=== PATIENT | male | born 1940 | race Caucasian/White ===

== ENCOUNTER 2021-06-28 17:42 | Emergency (ER) | payer MEDICARE, SELFPAY ==
[2021-06-28 18:03] VITALS: BP 104/61; PULSE 95; RESP 18; TEMP 37; O2SAT 90; BMI 33.2
--- NOTE | 2021-06-28 18:28 | XRR_ITS ---
PROCEDURE INFORMATION: Exam: XR Chest Exam date and time: 06/28/2021 6:36 PM Age: 81 years old Clinical indication: Shortness of breath; Additional info: SOB TECHNIQUE: Imaging protocol: XR of the chest. Views: 1 view. COMPARISON: CR Chest 2 views* [id number] 04/08/2018 9:21 AM FINDINGS: Lungs: Unremarkable. No consolidation. Pleural spaces: Unremarkable. No pleural effusion. No pneumothorax. Heart/Mediastinum: Unremarkable. No cardiomegaly. Bones/joints: Unremarkable. XR/XR chest 1V portable [id number] IMPRESSION: No acute findings.
--- NOTE | 2021-06-28 18:28 | ECG_ITS ---
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 Measurements Intervals [place] Rate: 85 P: 59 GA: 256 QRS: -38 QRSD: 104 T: 124 QT: 380 QTc: 454 Interpretive Statements SINUS RHYTHM WITH FIRST DEGREE AV BLOCK LEFT AXIS DEVIATION [QRS AXIS < -30] ST DEVIATION AND MODERATE T-WAVE ABNORMALITY, CONSIDER LATERAL ISCHEMIA [-0.1+ mV T-WAVE IN I/aVL/V5/V6] Compared to ECG 01/25/2018 14:01:34 First degree AV block now present Left-axis deviation now present Possible ischemia now present Ventricular premature complex(es) no longer present T-wave abnormality still present Electronically Signed On 06-28-2021 20:46:11 CDT by Amandeep Bledsoe M.D. [id number]
[2021-06-28 19:30] VITALS: BP 130/82; PULSE 87; RESP 17; O2SAT 96
[2021-06-28] MEDS: FUROsemide 10 mg/mL SDV 10mL 60 MG IVP (19:41)
[2021-06-28 19:43] LABS: Basophils # 0.1 10^3/uL (0.0-0.1); Basophils % 0.6 %; Eosinophils # 0.2 10^3/uL (0.0-0.8); Eosinophils % 1.8 %; Hematocrit 42.7 % (42.0-52.0); Hemoglobin 13.4 g/dL (11.7-16.6); Lymphocytes # 1.1 10^3/uL (0.8-4.8); Lymphocytes % 13.3 %; Mean Corpuscular HGB Conc 31.4 g/dL (30.0-36.0); Mean Corpuscular Hemoglobin 25.8 pg (28.0-34.0); Mean Corpuscular Volume 82.3 fl (80-94); Mean Platelet Volume 11.7 fL (7.4-10.4); Monocytes # 0.8 10^3/uL (0.2-0.9); Monocytes % 9.5 %; Neutrophils # 6.36 10^3/uL (1.8-7.7); Neutrophils % 74.2 %; Nucleated Red Blood Cells % 0 %; Platelet Count 323 10^3/cmm (130-400); Red Blood Count 5.19 10^6/uL (4.1-5.3); Red Cell Distribution Width 13.5 % (12.1-15.1); White Blood Count 8.6 10^3/uL (4.0-10.0)
[2021-06-28 19:45] VITALS: BP 144/88; PULSE 88; RESP 19; O2SAT 95
--- NOTE | 2021-06-28 19:53 | W.ED.SOB ---
HPI - SOB/Dyspnea General: Chief Complaint: Shortness of Breath/Dyspnea Stated Complaint: low O2 Time Seen by Provider: 06/28/21 19:21 Source: patient Mode of arrival: ambulatory Limitations: no limitations History of Present Illness: HPI Narrative: 81-year-old male who states he has a history congestive heart failure states been having increasing dyspnea he states that he was on oxygen as needed and recently saw his PCP he was increase his Lasix dose and has him on 4 L at baseline. He states that even with 4 L he is continue to have dyspnea his daughter and flown in and states that he just been having extreme dyspnea with any exertion and increased swelling. He denies any pain denies any cough denies any fever. Associated symptoms: Deny abdominal pain, chest pain, fever(s), nausea or vomiting Review of Systems Const: Denies: fever(s), chills, body aches or change in appetite Eyes: Denies: blurry vision or eye discomfort ENMT: Denies: throat pain or dental pain Card: Denies: chest pain Resp: Reports: dyspnea GI: Denies: abdominal pain, nausea, vomiting or diarrhea : Denies: dysuria Musc: Reports: extremity swelling Skin/Breast: Denies: rash Neuro: Denies: headache(s) Psych: Denies: depression Trey/Lymph: Denies: easy bruising All/Imm: Denies: urticaria PFSH ED PFSH: Medical History Chronic systolic (congestive) heart failure Depression Encounter for nasogastric (NG) tube placement HTN (hypertension) Hypertensive heart disease with acute diastolic congestive heart failure Mixed hyperlipidemia 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 Stroke Type 2 diabetes mellitus Surgical History Hx of tonsillectomy Family History Mother Diabetes Father Diabetes Congestive heart failure Brother Diabetes Sister Diabetes Grandmother Diabetes Family/Other Diabetes Social History Smoking and tobacco status: former smoker Quit status (tobacco): has quit using tobacco Year quit tobacco: 1968 - 1PPD x 10 Years Second hand smoke exposure: No Alcohol intake: never Lives independently: Yes Household members: family Marital status: Current occupational status: retired History of recent travel: No Current gender identity: Male Physical Exam Const: COMMON NORMALS: patient oriented x3 GENERAL APPEARANCE: in distress and ill appearing HENMT: COMMON NORMALS: normocephalic and atraumatic HEAD & SCALP: normocephalic and atraumatic Eye: COMMON NORMALS: Equal, round and reactive pupils present and EOMs intact bilaterally PUPIL: Yes Equal, round and reactive pupils present Neck/C-Spine: COMMON NORMALS: full ROM and supple Chest: COMMONS NORMALS: normal inspection of the chest and normal palpation of entire chest wall Resp: COMMON NORMALS: No retractions and No use of accessory muscles AUSCULTATION: rales Cardio: COMMON NORMALS: regular rate, regular rhythm and No murmurs present (Cardio) RATE: regular rate RHYTHM: regular rhythm GI: COMMON NORMALS: Normal to inspection, nondistended, normoactive bowel sounds present, Soft to palpation, non-tender and no masses PALPATION: Yes Soft to palpation Extremity: COMMON NORMALS: full ROM OTHER: 2+edema Neuro: COMMON NORMALS: patient oriented x3, moves all extremities and no focal motor deficits Psych: COMMON NORMALS: mental status grossly normal, Normal thought process present and cooperative THOUGHT PROCESS: Normal thought process present Skin: COMMON NORMALS: no rashes or lesions noted and no wounds GENERAL SKIN EXAM: no rashes or lesions noted Course Vital Signs: Vital signs: Vital Signs Temperature 98.6 F 06/28/21 18:03 Pulse Rate 86 06/28/21 20:45 Respiratory Rate 12 06/28/21 20:45 Blood Pressure 143/93 06/28/21 20:45 Pulse Oximetry 94 06/28/21 20:45 MDM - SOB/Dyspnea Medical Decision Making Patient presents here with shortness of breath likely from his congestive heart failure he is feels much improved here after IV Lasix his x-ray is clear did have shared decision-making with him and his daughter and I offered him admission he states he feels improved and like to continue his increased Lasix at home as well he does have close follow-up as an echo scheduled for his daughter is going to be staying with him I informed her if he worsens at all they are to return immediately she understands agrees to plan. Lab Data : 06/28/21 19:30 05/03/22 19:30 Labs/Radiology: Radiology Impressions Chest X-Ray 06/28/21 18:28 IMPRESSION: No acute findings. Laboratory Results WBC 8.6 10^3/uL (4.0-10.0) 06/28/21 19: RBC 5.19 10^6/uL (4.1-5.3) 06/28/21 19: Hgb 13.4 g/dL (11.7-16.6) 06/28/21 19: Hct 42.7 % (42.0-52.0) 06/28/21: MCV 82.3 fl (80-94) 06/28/21: MCH 25.8 pg (28.0-34.0) L 06/28/21: MCHC 31.4 g/dL (30.0-36.0) 06/28/21: RDW 13.5 % (12.1-15.1) 06/28/21: Plt Count 323 10^3/cmm (130-400) 06/28/21 19: MPV 11.7 fL (7.4-10.4) H 06/28/21: Neut % (Auto) 74.2 % 06/28/21: Lymph % (Auto) 13.3 % 06/28/21 19: [place] % (Auto) 9.5 % 06/28/21: Eos % (Auto) 1.8 % 06/28/21: Baso % (Auto) 0.6 % 06/28/21: Neut # (Auto) 6.36 10^3/uL (1.8-7.7) 06/28/21: Lymph # (Auto) 1.1 10^3/uL (0.8-4.8) 06/28/21: [place] # (Auto) 0.8 10^3/uL (0.2-0.9) 06/28/21 19: Eos # (Auto) 0.2 10^3/uL (0.0-0.8) 06/28/21 19: Baso # (Auto) 0.1 10^3/uL (0.0-0.1) 06/28/21 19: Nucleated RBC % (auto) 0 % 06/28/21 19: Nucleated RBCs # 0.0 /100WBC 06/28/21 19: PT 14.20 SECONDS (12.1-14.9) 06/28/21 19:30 INR 1.07 (0.8-1.2) 06/28/21 19:30 Sodium 140 mmol/L (136-145) 06/28/21 19: Potassium 4.0 mmol/L (3.5-5.1) 06/28/21 19: Chloride 100 mmol/L (98-107) 06/28/21: Carbon Dioxide 26 mmol/L (22-29) 06/28/21: Anion Gap 18.0 (5-19) 06/28/21 19: BUN 29 mg/dL (8-23) H 06/28/21 19: Creatinine 1.4 mg/dL (0.7-1.2) H 06/28/21: GFR Calculation Not Reportable 06/28/21: Glucose 231 mg/dL (65-115) H 06/28/21: Calculated Osmolality 303 mOsm/kg (285-295) H 06/28/21: Calcium 9.3 mg/dL (8.5-10.5) 06/28/21: Total Bilirubin 0.3 mg/dL (0.15-1.2) 06/28/21 19: AST 9 U/L (0-40) 06/28/21: ALT 7 U/L (0-41) 06/28/21: Alkaline Phosphatase 129 IU/L (40-130) 06/28/21 19:30 NT-Pro-B Natriuret Pep 6222 pg/mL (0-450) H 06/28/21 19: Total Protein 6.9 g/dL (6.6-8.7) 06/28/21 19: Albumin 3.6 g/dL (3.5-5.2) 06/28/21 19: Globulin 3.3 g/dL (1.3-4.6) 06/28/21 19:30 EKG Data EKG 1: I personally reviewed and interpreted this EKG as follows: EKG Interpretation Date: 06/28/21 EKG interpretation time: 19:30 Interpretation: nsr hr [address] or t wave abnormalities qrs 104 qtc 423 Discharge Plan Discharge Patient Disposition: Home Clinical Impression: Acute exacerbation of CHF (congestive heart failure) Condition: Stable Prescriptions: No Action paroxetine HCl 10 mg tablet 10 mg PO DAILY 0RF pantoprazole [Protonix] 40 mg tablet,delayed release (DR/EC) 40 mg PO DAILY 0RF metformin 1,000 mg tablet 1,000 mg PO BID 0RF Levemir FlexTouch U-100 Insuln 100 unit/mL (3 mL) insulin pen 30 unit SUBCUT DAILY 0RF furosemide [Lasix] 40 mg tablet 40 mg PO DAILY 0RF clopidogrel [Plavix] 75 mg tablet 75 mg PO DAILY 0RF lisinopril 20 mg tablet 10 mg PO DAILY 0RF cetirizine [Zyrtec] 10 mg tablet 5 mg PO DAILY 0RF docusate sodium [Colace] 100 mg capsule 100 mg PO BID 0RF magnesium hydroxide 400 mg/5 mL suspension 30 ml PO DAILY PRN0RF semaglutide 0.25 mg or 0.5 mg(2 mg/1.5 mL) pen injector 0.5 mg SUBCUT .Weekly 0RF simvastatin 80 mg tablet 80 mg PO DAILY 0RF tramadol 50 mg tablet 50 mg PO DAILY 0RF albuterol sulfate 90 mcg/actuation HFA aerosol inhaler 2 puff inhalation Q6H PRN (Reason: shortness of breath or wheezing) 30 Days Qty: 18 4RF potassium chloride 10 mEq tablet extended release 10 meq PO DAILY Qty: 90 3RF Anoro Ellipta 62.5-25 mcg/actuation blister with device 1 inh inhalation DAILY Qty: 60 3RF Discharge Orders: Discharge ED (Routine); Ordered 06/28/21 Ordered By: Maru Walker Discharge Diet: Advance as tolerated Discharge Activity: Resume usual activity Patient Instructions: Heart Failure (ED) Coding Level of Care Code ED Application Programmer Analyst for Anthony Fwd Exam Comprehensive
[2021-06-28 20:10] LABS: INR 1.07 (0.8-1.2)
[2021-06-28 20:18] LABS: Alanine Aminotransferase 7 U/L (0-41); Albumin Level 3.6 g/dL (3.5-5.2); Alkaline Phosphatase 129 IU/L (40-130); Aspartate Amino Transferase 9 U/L (0-40); Blood Urea Nitrogen 29 mg/dL (8-23); Calcium 9.3 mg/dL (8.5-10.5); Carbon Dioxide 26 mmol/L (22-29); Chloride 100 mmol/L (98-107); Globulin 3.3 g/dL (1.3-4.6); Glucose 231 mg/dL (65-115); NT Pro B Type Natriuretic Pept 6222 pg/mL (0-450); Osmolality Calculated 303 mOsm/kg (285-295); Sodium 140 mmol/L (136-145); Total Bilirubin 0.3 mg/dL (0.15-1.2); Total Protein 6.9 g/dL (6.6-8.7)
[2021-06-28 20:45] VITALS: BP 143/93; PULSE 86; RESP 12; O2SAT 94
== END 2021-06-28 20:46 | disposition home or self-care (01) ==
PROVIDERS: Emergency Provider Emergency Medicine
DX: I11.0 Hypertensive heart disease with heart failure (principal); I50.23 Acute on chronic systolic (congestive) heart failure; E11.9 Type 2 diabetes mellitus without complications; Z87.891 Personal history of nicotine dependence; Z99.81 Dependence on supplemental oxygen; Z79.4 Long term (current) use of insulin; Z79.84 Long term (current) use of oral hypoglycemic drugs; Z79.02 Long term (current) use of antithrombotics/antiplatelets
CPT/HCPCS: 71045; 80053; 83880; 85025; 85610; 93005; 96374; 99284; J1940

== ENCOUNTER 2021-07-01 12:23 | Outpatient (CLI) | payer MEDICARE, SELFPAY ==
--- NOTE | 2021-07-01 12:33 | USCV_ITS ---
Vijay Barajas Age: 81 Gender: M : 1940 Exam Date: 07/01/2021 13:14 Ordering Phys: GHADA MERA Technologist: TANJA [place] [facility] [place]ication: Aortic stenosis, moderate BP: 139 / 87 HR: 86 Rhythm: Sinus Technical Quality: Suboptimal MEASUREMENTS (Male / Female) Normal Values 2D ECHO LV Diastolic Diameter PLAX 3.9 cm 4.2 - 5.9 / 3.9 - 5.3 cm LV Systolic Diameter PLAX 3.2 cm IVS Diastolic Thickness 1.5 cm 0.6 - 1.0 / 0.6 - 0.9 cm IVS Systolic Thickness 1.9 cm LVPW Diastolic Thickness 1.5 cm 0.6 - 1.0 / 0.6 - 0.9 cm LVPW Systolic Thickness 1.7 cm RV Chamber Size 3.2 cm LVOT Diameter 2.1 cm LV Ejection Fraction 2D Teich 38.0 % LA Diameter 2.7 cm LA Width 3.5 cm LA Height 4.3 cm RA Width 4.6 cm RA Height 4.5 cm Aorta at Sinotubular Diameter 2.9 cm M-MODE Aortic Annulus Diameter 3.4 cm LA Ao Ratio MM 0.7 MV E Point Septal Separation 1.1 cm DOPPLER AV Peak Velocity 369.0 cm/s LVOT Peak Velocity 86.0 cm/s AV Area Cont Eq vti 0.8 cm squared AV Area Cont Eq pk 0.8 cm squared MV Area PHT 7.9 cm squared MV E' Velocity 68.0 cm/s Mitral E to MV E' Ratio 12.3 Mitral E to LV E' Lateral Ratio 12.5 Mitral E to LV E' Septal Ratio 12.2 TR Peak Velocity 247.0 cm/s TR Peak Gradient 24.4 mmHg Right Atrial Pressure 3.0 mmHg Pulmonary Artery Systolic Pressu 27.4 mmHg PV Peak Velocity 71.0 cm/s RV Acceleration Time 0.1 s RV Ejection Time 0.2 s RV AcT/ET 0.2 FINDINGS Left Ventricle Diffuse hypokinesia of the left ventricle with ejection fraction of 38%. Somewhat dyskinetic basal septal segment. Right Ventricle Normal RV size with a slightly diminished ejection fraction. TAPSE was 1.02 Right Atrium The right atrium is normal in size. Left Atrium The left atrium is normal in size. Mitral Valve Thickened mitral valve with moderate mitral annular calcification. Aortic Valve Trace aortic valve regurgitation. Severe low gradient aortic valve stenosis with a valve area of 0.71 cm2 and a valve index of .32. The peak velocity was 3.9 m/s with a peak gradient of 61 and a mean gradient of 32 Tricuspid Valve Mild tricuspid annular calcification. Pulmonary artery peak systolic pressure was 27 mmHg Pulmonic Valve No gross abnormalities noted Pericardium No pericardial effusion. Aorta Normal aortic annulus size. CONCLUSIONS Severe low gradient aortic valve stenosis with a valve area of 0.71 cm2 and a valve index of .32. The peak velocity was 3.9 m/s with a peak gradient of 61 and a mean gradient of 32. Trace aortic valve regurgitation. Diffuse hypokinesia of the left ventricle with an ejection fraction of 38%. Somewhat dyskinetic basal septal segment. Normal RV size with a slightly diminished ejection fraction. Thickened mitral valve with moderate mitral annular calcification. Mild tricuspid annular calcification. Pulmonary artery peak systolic pressure was 27 mmHg There is no pericardial effusion. There are no intracardiac masses. Compared to the study from 12/19/2018, there is a significant drop in the LV ejection fraction. The there is worsening of the aortic valve stenosis as well. The ejection fraction was 60 to 65%. Dr Dominic Nava MD [facility] (Electronically Signed) Final Date: 01 Jul 2021 19:50 S
== END 2021-07-01 12:24 | disposition home or self-care (01) ==
LOC: RAD 12:25
PROVIDERS: Visit Provider Internal Medicine Cardiovascular Disease
DX: I35.0 Nonrheumatic aortic (valve) stenosis (principal); I50.22 Chronic systolic (congestive) heart failure
CPT/HCPCS: 93306

== ENCOUNTER 2021-12-05 14:03 | Inpatient (IN) | payer MEDICARE, MEDICAID, SELFPAY ==
[2021-12-05] VITALS (31 sets, daily range): BP systolic 108–187; BP diastolic 66–108; PULSE 69–113; RESP 16–42; TEMP 36.1–36.7; O2SAT 87–95; BMI 32.8
--- NOTE | 2021-12-05 14:35 | ECG_ITS ---
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 Measurements Intervals [place] Rate: 112 P: [place]: QRS: -13 QRSD: 110 T: 108 QT: 361 QTc: 493 Interpretive Statements Atrial flutter with a frequent PVCs SEPTAL MYOCARDIAL INFARCTION , PROBABLY OLD [40+ ms Q WAVE IN V1/V2] Compared to ECG 06/28/2021 19:30:48 Myocardial infarct finding now present Sinus rhythm no longer present First degree AV block no longer present Left-axis deviation no longer present T-wave abnormality no longer present Possible ischemia no longer present Electronically Signed On 12-05-2021 21:25:18 CDT by Dominic Nava M.D. [id number]
--- NOTE | 2021-12-05 14:35 | XRR_ITS ---
PROCEDURE INFORMATION: Exam: XR Chest Exam date and time: 12/05/2021 2:42 PM Age: 81 years old Clinical indication: Cough and dyspnea; Patient HX: Nausea, not eating, trouble walking, confused; Additional info: Dyspnea/cough TECHNIQUE: Imaging protocol: Radiologic exam of the chest. Views: 1 view. COMPARISON: CR XR chest 1V portable [id number] 06/28/2021 6:36 PM FINDINGS: Lungs: Unremarkable. No consolidation. Pleural spaces: Unremarkable. No pleural effusion. No pneumothorax. Heart/Mediastinum: Unremarkable. No cardiomegaly. Bones/joints: Unremarkable. Other findings: There has been no interval change comparing to prior XR/XR chest 1V portable [id number] IMPRESSION: No acute findings.
[2021-12-05 15:02] LABS: Basophils # 0.1 10^3/uL (0.0-0.1); Basophils % 0.6 %; Eosinophils # 0.2 10^3/uL (0.0-0.8); Hematocrit 39.8 % (42.0-52.0); Hemoglobin 12.2 g/dL (11.7-16.6); Lymphocytes # 0.8 10^3/uL (0.8-4.8); Lymphocytes % 10.2 %; Mean Corpuscular HGB Conc 30.7 g/dL (30.0-36.0); Mean Corpuscular Hemoglobin 25.9 pg (28.0-34.0); Mean Corpuscular Volume 84.5 fl (80-94); Mean Platelet Volume 11.6 fL (7.4-10.4); Monocytes # 0.8 10^3/uL (0.2-0.9); Monocytes % 9.9 %; Neutrophils # 6.31 10^3/uL (1.8-7.7); Neutrophils % 76.9 %; Nucleated Red Blood Cells % 0 %; Platelet Count 239 10^3/cmm (130-400); Red Blood Count 4.71 10^6/uL (4.1-5.3); Red Cell Distribution Width 13.9 % (12.1-15.1); White Blood Count 8.2 10^3/uL (4.0-10.0)
--- NOTE | 2021-12-05 15:02 | ED_ITS ---
HPI - Arrhythmia/Palpitations General: Chief Complaint: Arrhythmia/Palpitations Stated Complaint: heart rate at 35 Time Seen by Provider: 12/05/21 14:35 Source: patient Mode of arrival: ambulatory History of Present Illness: 81-year-old male presents emergency room complaining of a slow heart rate. He says his heart rate has been as low as 35 at home has been difficult keeping his oxygen saturations up no recent medication changes. Patient is diabetic he denies any chest pain. MD complaint: palpitations and irregular heart beat Onset (ago): day(s) Duration: intermittent Severity: moderate Context: occurred during rest Associated symptoms: Reports short of breath; Deny anxiety, cough, diaphoresis, muscle cramps, nausea, paresthesias, pre- syncope, sense of impending doom, syncope or vomiting Review of Systems Const: Reports: fatigue and malaise; Denies: fever(s), chills or diaphoresis ENMT: Denies: throat pain, ear or mastoid pain, nasal discharge or nasal congestion Card: Reports: palpitations, irregular heart rhythm, edema and swelling of feet/ankles; Denies: chest pain, syncope or pre-syncope Resp: Denies: dyspnea, productive cough or non-productive cough GI: Denies: abdominal pain, nausea or vomiting : Denies: flank pain, difficulty urinating, dysuria, urinary frequency or urinary urgency Musc: Denies: muscle cramps Skin/Breast: Denies: rash or pruritus Psych: Denies: anxiety PFSH ED PFSH: Medical History Chronic systolic (congestive) heart failure Depression Encounter for nasogastric (NG) tube placement HTN (hypertension) Hypertensive heart disease with acute diastolic congestive heart failure Mixed hyperlipidemia 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 Stroke Type 2 diabetes mellitus Surgical History Hx of tonsillectomy Family History Mother Diabetes Father Diabetes Congestive heart failure Brother Diabetes Sister Diabetes Grandmother Diabetes Family/Other Diabetes Social History Smoking and tobacco status: former smoker Quit status (tobacco): has quit using tobacco Year quit tobacco: 1969 - 1PPD x 10 Years Second hand smoke exposure: No Alcohol intake: never Lives independently: Yes Household members: family Marital status: Current occupational status: retired History of recent travel: No Current gender identity: Male Physical Exam Const: COMMON NORMALS: no acute distress GENERAL APPEARANCE: cooperative and comfortable ORIENTATION/CONSCIOUSNESS: Yes awake, Yes oriented to person, Yes oriented to place and Yes oriented to time HENMT: COMMON NORMALS: normocephalic, atraumatic and hearing grossly normal bilaterally HEAD & SCALP: normocephalic and atraumatic Resp: COMMON NORMALS: normal respiratory effort, No retractions, No use of accessory muscles and clear to auscultation bilaterally AUSCULTATION: clear to auscultation bilaterally Cardio: RATE: tachycardic RHYTHM: abnormal rhythm irregularly irregular HEART SOUNDS: Murmur heart sound present systolic Location: left sternal border Intensity: IV/ Timing: late GI: COMMON NORMALS: Soft to palpation and No hepatosplenomegaly present AUS CULTATION: Yes normoactive bowel sounds PALPATION: Yes Soft to palpation, No Tenderness to palpation present (GI), No Guarding due to palpation present (GI) and Yes No hepatosplenomegaly present Extremity: COMMON NORMALS: normal to inspection, capillary refill normal, no clubbing, cyanosis or edema, no calf tenderness and no pedal edema Neuro: SENSORIUM/ORIENTATION: Yes oriented to person, Yes oriented to place and Yes oriented to time Skin: COMMON NORMALS: no rashes or lesions noted GENERAL SKIN EXAM: no rashes or lesions noted Course Vital Signs: Vital signs: Vital Signs Temperature 98.0 F 12/05/21 14:05 Pulse Rate 69 12/05/21 14:05 Respiratory Rate 18 12/05/21 14:05 Blood Pressure 173/66 12/05/21 14:05 Pulse Oximetry 90 12/05/21 14:05 Oxygen Delivery Me thod 12/05/21 14:05 Fraction of Inspir ed Oxygen 4 12/05/21 14:05 MDM - Arrhythmia/Palpitations Medical Decision Making Patient and family reporting intermittent tach. Arrhythmias with heart rates up in the 130s and 140s and other times down in the 30s they have been monitoring u sing a finger pulse ox. We have only seen Blaze call here since he has arrived rates have been in the 70s and above. His first troponin is 85 we will admit him for serial troponins monitoring for tacky arrhythmias discussed with Dr. Guillen he is going to consult cardiology if needed. Medical Records I reviewed the patient's medical records. Lab Data I reviewed the patient's lab results. : 12/05/21 14:50 12/05/21 14:50 Radiology Impressions Chest X-Ray 12/05/21 14:35 IMPRESSION: No acute findings. Laboratory Results WBC 8.2 10^3/uL (4.0-10.0) 12/05/21 14:50 RBC 4.71 10^6/uL (4.1-5.3) 12/05/21 14:50 Hgb 12.2 g/dL (11.7-16.6) 12/05/21 14:50 Hct 39.8 % (42.0-52.0) L 12/05/21 14:50 MCV 84.5 fl (80-94) 12/05/21 14:50 MCH 25.9 pg (28.0-34.0) L 12/05/21 14:50 MCHC 30.7 g/dL (30.0-36.0) 12/05/21 14:50 RDW 13.9 % (12.1-15.1) 12/05/21 14:50 Plt Count 239 10^3/cmm (130-400) 12/05/21 14:50 MPV 11.6 fL (7.4-10.4) H 12/05/21 14:50 Neut % (Auto) 76.9 % 12/05/21 14:50 Lymph % (Auto) 10.2 % 12/05/21 14:50 [place] % (Auto) 9.9 % 12/05/21 14:50 Eos % (Auto) 2.0 % 12/05/21 14:50 Baso % (Auto) 0.6 % 12/05/21 14:50 Neut # (Auto) 6.31 10^3/uL (1.8-7.7) 12/05/21 14:50 Lymph # (Auto) 0.8 10^3/uL (0.8-4.8) 12/05/21 14:50 [place] # (Auto) 0.8 10^3/uL (0.2-0.9) 12/05/21 14:50 Eos # (Auto) 0.2 10^3/uL (0.0-0.8) 12/05/21 14:50 Baso # (Auto) 0.1 10^3/uL (0.0-0.1) 12/05/21 14:50 Nucleated RBC % (auto) 0 % 12/05/21 14:50 Nucleated RBCs # 0.0 /100WBC 12/05/21 14:50 Sodium 136 mmol/L (136-145) 12/05/21 14:50 Potassium 4.1 mmol/L (3.5-5.1) 12/05/21 14:50 Chloride 98 mmol/L (98-107) 12/05/21 14:50 Carbon Dioxide 26 mmol/L (22-29) 12/05/21 14:50 Anion Gap 16.1 (5-19) 12/05/21 14:50 BUN 34 mg/dL (8-23) H 12/05/21 14:50 Creatinine 1.5 mg/dL (0.7-1.2) H 12/05/21 14:50 GFR Calculation Not Reportable 12/05/21 14:50 Glucose 195 mg/dL (65-115) H 12/05/21 14:50 Calculated Osmolality 295 mOsm/kg (285-295) 12/05/21 14:50 Calcium 9.0 mg/dL (8.5-10.5) 12/05/21 14:50 Total Bilirubin 0.5 mg/dL (0.15-1.2) 12/05/21 14:50 AST 13 U/L (0-40) 12/05/21 14:50 ALT 12 U/L (0-41) 12/05/21 14:50 Alkaline Phosphatase 119 U/L (40-130) 12/05/21 14:50 Troponin T Baseline 87 ng/L (0-15) H 12/05/21 14:50 Total Protein 6.5 g/dL (6.6-8.7) L 12/05/21 14:50 Albumin 3.7 g/dL (3.5-5.2) 12/05/21 14:50 Globulin 2.8 g/dL (1.3-4.6) 12/05/21 14:50 Discharge Plan Discharge Patient Disposition: Placed in Observation Admit Provider: Corinne Guillen Condition: Stable Prescriptions: No Action pantoprazole [Protonix] 40 mg tablet,delayed release (DR/EC) 40 mg PO QAM metformin 1,000 mg tablet 1,000 mg PO BID Levemir FlexTouch U-100 Insuln 100 unit/mL (3 mL) insulin pen 40 unit SUBCUT QAM furosemide [Lasix] 40 mg tablet 20 mg PO QAM clopidogrel [Plavix] 75 mg tablet 75 mg PO QAM docusate sodium [Colace] 100 mg capsule 100 mg PO QAM tramadol 50 mg tablet 50 - 100 mg PO Q8H PRN (Reason: Pain) albuterol sulfate 90 mcg/actuation HFA aerosol inhaler 2 puff inhalation Q6H PRN (Reason: shortness of breath or wheezing) 30 Days Qty: 18 4RF Aspir-81 81 mg Tablet,Delayed Release (Dr/Ec) 81 mg PO QAM lisinopril 5 mg tablet 5 mg PO QAM potassium gluconate 550 mg (90 mg) Tablet 550 mg PO QAM Trulicity 1.5 mg/0.5 mL pen injector 1.5 mg SUBCUT Q7D Rx Instructions: on sunday potassium chloride 10 mEq tablet extended release 10 meq PO QAM Anoro Ellipta 62.5-25 mcg/actuation blister with device 1 inh inhalation DAILY PRN (Reason: unknown) Coding Level of Care Code ED Leather Stripping Machine Operator for Anthony Pettit
[2021-12-05 15:24] LABS: Alanine Aminotransferase 12 U/L (0-41); Albumin Level 3.7 g/dL (3.5-5.2); Alkaline Phosphatase 119 U/L (40-130); Anion Gap 16.1 (5-19); Aspartate Amino Transferase 13 U/L (0-40); Blood Urea Nitrogen 34 mg/dL (8-23); Carbon Dioxide 26 mmol/L (22-29); Chloride 98 mmol/L (98-107); Globulin 2.8 g/dL (1.3-4.6); Glucose 195 mg/dL (65-115); Osmolality Calculated 295 mOsm/kg (285-295); Potassium 4.1 mmol/L (3.5-5.1); Sodium 136 mmol/L (136-145); Total Bilirubin 0.5 mg/dL (0.15-1.2); Total Protein 6.5 g/dL (6.6-8.7)
[2021-12-05 15:29] LABS: Troponin(5th) Baseline 87 ng/L (0-15)
--- NOTE | 2021-12-05 15:35 | PC.PHAR ---
pt and pts daughter verified pts medications and brought in some of the pts medication bottles-rx filled and picked up 11/01/21 for trulicity 1.5mg q 7d-pts daughter states she thought he was on ozempic [facility] states dced in august 2021 states pt takes trulicity-rx filled for levemir flextouch u-100 30-40 units daily pts daughter states the pt uses 40 units qam-rx bottle dated 08/02/2020 for metformin 1000mg bid [facility] last filled 01/24/21 pt states was just taking one tab daily then states just started taking bid again-notes are made in the pharmacy comments
--- NOTE | 2021-12-05 16:32 | PM.HP ---
Providers/Chief Complaint Chief Complaint: heart rate at 35 and SOB History of Present Illness Vijay Barajas is a 81 year old male who presented to the hospital for 4 days in mild shortness of breath generalized weakness and fatigue. Today patient was checking his pulse when he was weak and lethargic at home he noticed his heart rate was in low 30s that prompted his visit to the ER. In the ER when I evaluated him he was in A. fib RVR heart rate 110. Hemodynamically stable Awake and alert No chest pain, nausea, vomiting, recent fever, diarrhea or vomiting. Is endorsing weakness and lethargy. He stating that he had valve replacement 1 week ago at [facility], he is on aspirin and Plavix No previous diagnosis of A. fib Review of Systems Const: Denies: fever(s) Eyes: Denies: change in vision ENMT: Denies: throat pain Card: Reports: dyspnea on exertion; Denies: chest pain Resp: Reports: dyspnea GI: Denies: abdominal pain : Denies: flank pain Musc: Denies: neck pain Skin/Breast: Denies: rash Neuro: Denies: headache(s) Psych: Denies: anxiety Endo: Denies: polyuria Trey/Lymph: Denies: easy bruising All/Imm: Denies: urticaria Medications/Allergies Home Medications Medication Instructions Recorded Confirmed Last Taken Type albuterol sulfate 90 mcg/actuation 2 puff inhalation Q6H PRN 02/05/20 12/05/21 Unknown Rx aerosol inhaler shortness of breath or wheezing 30 days #18 grams clopidogrel 75 mg tablet (Plavix) 75 mg PO QAM 02/05/20 12/05/21 12/05/21 History docusate sodium 100 mg capsule 100 mg PO QAM 02/05/20 12/05/21 12/05/21 History (Colace) furosemide 40 mg tablet (Lasix) 20 mg PO QAM 02/05/20 12/05/21 12/05/21 History insulin detemir U-100 100 unit/mL 40 unit SUBCUT QAM 02/05/20 12/05/21 12/05/21 History (3 mL) subcutaneous pen (Levemir FlexTouch U-100 Insulin) metformin 1,000 mg tablet 1,000 mg PO BID 02/05/20 12/05/21 12/05/21 History pantoprazole 40 mg tablet,delayed 40 mg PO QAM 02/05/20 12/05/21 12/05/21 History release (Protonix) tramadol 50 mg tablet 50 - 100 mg PO Q8H PRN Pain 02/05/20 12/05/21 Unknown History aspirin 81 mg tablet,delayed 81 mg PO QAM 12/05/21 12/05/21 12/05/21 History release dulaglutide 1.5 mg/0.5 mL 1.5 mg SUBCUT Q7D 12/05/21 12/05/21 11/29/21 History subcutaneous pen injector (Trulicity) lisinopril 5 mg tablet 5 mg PO QAM 12/05/21 12/05/21 12/05/21 History potassium chloride 10 mEq 10 meq PO QAM 12/05/21 12/05/21 12/05/21 History tablet,extended release potassium gluconate 550 mg (90 mg) 550 mg PO QAM 12/05/21 12/05/21 12/05/21 History tablet umeclidinium 62.5 mcg-vilanterol 1 inh inhalation DAILY PRN unknown 12/05/21 12/05/21 Unknown History 25 mcg/actuation powdr for inhalation (Anoro Ellipta) Allergies Allergy/AdvReac Type Severity Reaction Status Date / Time Sulfa (Sulfonamide AdvReac ADR/ALGY-Pa Verified 12/05/21 15:19 Antibiotics) lpitations PFSH Acute PFSH: Medical History Chronic systolic (congestive) heart failure Depression Encounter for nasogastric (NG) tube placement HTN (hypertension) Hypertensive heart disease with acute diastolic congestive heart failure Mixed hyperlipidemia 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 Stroke Type 2 diabetes mellitus Surgical History Hx of tonsillectomy Family History Mother Diabetes Father Diabetes Congestive heart failure Brother Diabetes Sister Diabetes Grandmother Diabetes Family/Other Diabetes Social History Smoking and tobacco status: former smoker Quit status (tobacco): has quit using tobacco Year quit tobacco: 1969 - 1PPD x 10 Years Second hand smoke exposure: No Alcohol intake: never Lives independently: Yes Household members: family Marital status: Current occupational status: retired History of recent travel: No Current gender identity: Male Vitals/I&O/Wt Last Vital Signs Temp 98.0 F 12/05/21 14:05 Pulse 69 12/05/21 14:05 Resp 18 12/05/21 14:05 BP 173/66 12/05/21 14:05 Pulse Ox 90 12/05/21 14:05 O2 Del Method 12/05/21 14:05 FiO2 4 12/05/21 14:05 Weight last 48 hrs Weight 106.594 kg Physical Exam Narrative: Awake and alert Clinically looks fluid overloaded A. fib RVR Variable S1-S2 Lungs are clear to auscultation Currently on 4 L which is at baseline Abdomen soft Lower extremity edema present EOMI, PERRLA Nonfocal neuro exam Data : 12/05/21 14:50 12/05/21 14:50 A&P Assessment and plan (1) Nocturnal hypoxia: (2) Severe aortic valve stenosis: (3) Emphysema of lung: (4) New onset a-fib: (5) CHF exacerbation: Plan New onset A. fib Patient noticed heart rate in 30s at home, concern for sick sinus syndrome question Currently in RVR I will give him low-dose metoprolol twice daily regimen Start him on therapeutic anticoagulating agent [place] 4-5 Aortic valve stenosis status post recent TAVR No active chest pain Will get echo check TSH check magnesium level Check A1c level Patient has history of COPD not in acute exacerbation currently on 4 L which is at baseline Systolic congestive heart failure acute exacerbation likely rate related, continue Lasix Full code Cardiac diet Attestations Medical Necessity Statement*: Less than 2 midnights anticipated for management of A. fib RVR Time Spent in Patient Care: 50 Coding Level of Care Code Acute County Program Technician for Chg Fwd Diagnoses Nocturnal hypoxia G47.34 Severe aortic valve stenosis I35.0 Emphysema of lung J43.9 New onset a-fib I48.91 CHF exacerbation I50.9
--- NOTE | 2021-12-05 16:52 | ECG_ITS ---
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 Measurements Intervals [place] Rate: 107 P: IN: QRS: 18 QRSD: 110 T: 97 QT: 394 QTc: 526 Interpretive Statements ATRIAL FLUTTER/TACHYCARDIA WITH RAPID VENTRICULAR RESPONSE WITH ABERRANT CONDUCTION OR VENTRICULAR PREMATURE COMPLEXES SEPTAL MYOCARDIAL INFARCTION , PROBABLY OLD [40+ ms Q WAVE IN V1/V2] Compared to ECG 12/05/2021 14:48:52 Ventricular premature complex(es) now present Aberrant conduction of supraventricular beat(s) now present Supraventricular tachycardia no longer present Myocardial infarct finding still present Electronically Signed On 12-05-2021 21:35:12 CDT by Dominic Nava M.D. [id number]
[2021-12-05 17:21] LABS: Troponin 5 2HR 89.89 ng/L (0-15)
[2021-12-05 17:24] LABS: Troponin 5 2HR Delta 2.89 ABS# (0-10)
--- NOTE | 2021-12-05 17:42 | USCV_ITS ---
Vijay Barajas Age: 81 Gender: M : 1940 Exam Date: 12/05/2021 18:25 Ordering Phys: Corinne Guillen MD Technologist: AYE Exam Location: [facility] [place] Indication: bradycardia History of cardiac stenting two weeks ago per patient. Upon questioning, patient has had a TAVR, time uncertain. BP: 131 / 73 HR: 96 Rhythm: Atrial fibrillation Technical Quality: Adequate MEASUREMENTS (Male / Female) Normal Values 2D ECHO LV Diastolic Diameter PLAX 5.3 cm 4.2 - 5.9 / 3.9 - 5.3 cm LV Systolic Diameter PLAX 5.0 cm IVS Diastolic Thickness 1.6 cm 0.6 - 1.0 / 0.6 - 0.9 cm IVS Systolic Thickness 1.8 cm LVPW Diastolic Thickness 1.4 cm 0.6 - 1.0 / 0.6 - 0.9 cm LVPW Systolic Thickness 1.5 cm LVOT Diameter 2.1 cm LV Ejection Fraction 2D Teich 15.3 % LV Ejection Fraction MOD 2C 16.3 % LV Ejection Fraction 2C AL 17.4 % LA Diameter 5.1 cm LA Width 5.0 cm LA Height 7.4 cm RA Width 6.3 cm RA Height 6.9 cm Aorta at Sinotubular Diameter 2.9 cm IVC Diameter 3.1 cm M-MODE Aortic Annulus Diameter 2.7 cm LA Ao Ratio MM 2.0 MV E Point Septal Separation 1.1 cm DOPPLER AV Peak Velocity 228.0 cm/s LVOT Peak Velocity 72.0 cm/s AV Area Cont Eq vti 0.9 cm squared AV Area Cont Eq pk 1.1 cm squared MV Peak Velocity 114.0 cm/s MV Area PHT 6.7 cm squared MV E' Velocity 75.0 cm/s Mitral E to MV E' Ratio 22.0 Mitral E to LV E' Lateral Ratio 21.0 Mitral E to LV E' Septal Ratio 23.5 TR Peak Velocity 304.0 cm/s TR Peak Gradient 37.0 mmHg TV Peak E Velocity 76.0 cm/s Right Atrial Pressure 10.0 mmHg Pulmonary Artery Systolic Pressu 47.0 mmHg PV Peak Velocity 97.0 cm/s RV Acceleration Time 0.1 s RV Ejection Time 0.3 s RV AcT/ET 0.3 FINDINGS Left Ventricle Left ventricle is mildly dilated. LV systolic function is severely reduced with EF of 15 to 20%. Severe global hypokinesis Right Ventricle RV is dilated and is hypokinetic Right Atrium Dilated Left Atrium Dilated Mitral Valve Normal mitral valve. Mild to moderate mitral regurgitation. Aortic Valve Bioprosthetic aortic valve.Mild to moderate aortic regurgitation. DVI is 0.26. Normally functioning aortic valve. Mean gradient across aortic valve of 10mmHg Tricuspid Valve Mild to moderate tricuspid regurgitation. RVSP is 50-55 mmHg. This is consistent with moderate pulmonary hypertension Pulmonic Valve Mild pulmonic regurgitation Pericardium Normal Aorta Mildly dilated ascending aorta IVC IVC is dilated with RA pressure >10mmHg CONCLUSIONS LV systolic function is severely reduced with EF of 15-20%. Severe global hypokinesis. RV is dilated and hypokinetic Biatrial englargement Mild mitral to moderate mitral regurgitation Bioprosthetic aortic valve. Mild to moderate aortic regurgitation. DVI is 026. Normally functioning aortic valve. Mean gradient across aortic valve of 10mmHg. Mild to moderate tricuspid regurgitation. Moderate pulmonary hypertension Mild pulmonic regurgitation Mildly dilated ascending aorta Elevated RA pressure Compared to prior echocardiogram from 06/2021, patient now has bioprosthetic aortic valve and LV systolic function has decreased further. Amandeep Bledsoe MD (Electronically Signed) Final Date: 06 December 2021 10:23 S
[2021-12-05 17:46] LABS: NT Pro B Type Natriuretic Pept 3914 pg/mL (0-450)
--- NOTE | 2021-12-05 18:00 | PC.NURSE ---
Admit Note Patient admitted to room 276-2 from ER via stretcher. Covering service notified Dr. Guillen. Patient is up and walking to room from bathroom. pt noted to be SOB. Pt stated he has been Sob for few days now. noted Afib w/rvr HR- 100s to 110s in tele when he is hooked up to cardiac monitoring. Pt noted to have swelling on legs and feet. Notified Dr Guillen via voalte phone. received orders to give IVP lasix 40 mg and metoprolol to give early. Patient and/or business center representative oriented to environment, equipment, and informed of the following as found in the admission booklet: patient rights & responsibilities, visitor policy, hand and respiratory hygiene practice. Other education includes: IVP lasix, metoprolol, lovenox and cardiac monitoring . Patient and/or business center representative verbalizes understanding. call light provided.
[2021-12-05] MEDS: magnesium oxide 400 mg tablet PO (18:20)
[2021-12-05 18:28] LABS: Glucose Point of Care 169 mg/dL (70-110)
[2021-12-05 18:38] LABS: Thyroid Stimulating Hormone 3.01 uIU/mL (0.27-4.20); Vitamin B12 343 pg/mL (232-1245)
[2021-12-05] MEDS: enoxaparin 100 mg/mL Syringe SUBCUT (19:18)
[2021-12-05] MEDS: insulin lispro 100 unit/1 mL SUBCUT (19:18)
[2021-12-05] MEDS: FUROsemide 10 mg/mL SDV 4mL 40 MG IVP (19:29)
[2021-12-05] MEDS: metoprolol tartrate 25 mg Tablet PO (19:29)
[2021-12-05 19:36] LABS: Estmated Average Glucose 209; Hemoglobin A1C 8.9 % (4.0-6.0)
[2021-12-05 21:22] LABS: Troponin 5 6HR 91.37 ng/L (0-15)
[2021-12-05 21:23] LABS: Troponin 5 6HR Delta 4.37 ng/L (0-12)
[2021-12-05 21:51] LABS: Glucose Point of Care 180 mg/dL (70-110)
--- NOTE | 2021-12-05 22:08 | ECG_ITS ---
[facility] Test Date: 2021-12-05 Pat Name: Vijay Barajas Department: Room: 276 Gender: Male Letterset Press Set Up Operator: : 1940 Requested By: Demond Miranda Order Number: [id number] Balbir MD: Amandeep Bledsoe M.D. Measurements Intervals [place] Rate: 88 P: OR: QRS: 8 QRSD: 101 T: 102 QT: 369 QTc: 447 Interpretive Statements ATRIAL FLUTTER/TACHYCARDIA Compared to ECG 12/05/2021 16:52:56 ST (T wave) deviation now present Ventricular premature complex(es) no longer present Myocardial infarct finding still present Electronically Signed On 12-07-2021 8:18:25 CDT by Amandeep Bledsoe M.D. [email or web address] [id number]
--- NOTE | 2021-12-05 22:13 | ECG_ITS ---
[facility] Test Date: 2021-12-05 Pat Name: Vijay Barajas Department: Room: 276 Gender: Male Behavioral Health Consultant: : 1940 Requested By: Shaw Soto Order Number: [id number] Balbir MD: Amandeep Bledsoe M.D. Measurements Intervals [place] Rate: 66 P: IN: QRS: 1 QRSD: 100 T: 99 QT: 418 QTc: 439 Interpretive Statements ATRIAL FLUTTER/TACHYCARDIA ST DEVIATION AND MODERATE T-WAVE ABNORMALITY, CONSIDER LATERAL ISCHEMIA [-0.1+ mV T-WAVE IN I/aVL/V5/V6] ST DEVIATION AND MODERATE T-WAVE ABNORMALITY, CONSIDER INFERIOR ISCHEMIA [-0.1+ mV T-WAVE IN II/aVF] Compared to ECG 12/05/2021 22:08:34 T-wave abnormality now present Possible ischemia now present ST (T wave) deviation no longer present Myocardial infarct finding no longer present Electronically Signed On 12-07-2021 8:18:37 CDT by Amandeep Bledsoe M.D. [id number]
[2021-12-05 23:10] LABS: Add Urine Microscopic? NO; Charge for UA Resulting for Rev
[2021-12-05 23:29] LABS: Bilirubin Urine Neg (Negative); Blood Urine Neg (Negative); Glucose Urine UA Norm (Normal); Ketones Urine Negative (Negative); Leukocyte Esterase Urine Negative (Negative); Nitrate Urine Negative (Negative); Protein Urine Neg (Negative); Specific Gravity, Urine 1.015 (1.005-1.030); Urine Appearance Clear (CLEAR); Urine Color Yellow (Yellow); Urobilinogen Urine Norm (Negative); pH Urine 5 (5-7)
--- NOTE | 2021-12-05 23:46 | PC.NURSE ---
Spoke with regarding patients most recent EKG. A picture was sent to and was reviewed. gave no new orders but called and spoke with nurse, patients vitals are stable and nocomplaints of chest pain.
[2021-12-06] VITALS (15 sets, daily range): BP systolic 84–150; BP diastolic 52–91; PULSE 68–102; RESP 16–24; TEMP 36.2–36.8; O2SAT 92–96
[2021-12-06 02:59] LABS: Basophils # 0.1 10^3/uL (0.0-0.1); Basophils % 0.7 %; Eosinophils # 0.1 10^3/uL (0.0-0.8); Eosinophils % 1.2 %; Hematocrit 42.2 % (42.0-52.0); Hemoglobin 12.2 g/dL (11.7-16.6); Lymphocytes # 0.7 10^3/uL (0.8-4.8); Lymphocytes % 7.9 %; Mean Corpuscular HGB Conc 28.9 g/dL (30.0-36.0); Mean Corpuscular Hemoglobin 25.4 pg (28.0-34.0); Mean Corpuscular Volume 87.9 fl (80-94); Monocytes # 0.8 10^3/uL (0.2-0.9); Monocytes % 10.1 %; Neutrophils # 6.54 10^3/uL (1.8-7.7); Neutrophils % 79.6 %; Nucleated Red Blood Cells % 0 %; Platelet Count 248 10^3/cmm (130-400); Red Cell Distribution Width 14.1 % (12.1-15.1); White Blood Count 8.2 10^3/uL (4.0-10.0)
[2021-12-06 03:30] LABS: Anion Gap 18.2 (5-19); Blood Urea Nitrogen 35 mg/dL (8-23); Carbon Dioxide 28 mmol/L (22-29); Chloride 97 mmol/L (98-107); Glucose 162 mg/dL (65-115); Magnesium 1.8 mg/dL (1.7-2.3); Osmolality Calculated 300 mOsm/kg (285-295); Potassium 4.2 mmol/L (3.5-5.1); Sodium 139 mmol/L (136-145)
[2021-12-06] MEDS: aspirin 81 mg EC Tablet PO (05:54)
[2021-12-06] MEDS: lisinopril 5 mg Tablet PO (05:54)
[2021-12-06] MEDS: pantoprazole DR 40 mg Tablet PO (05:54)
[2021-12-06] MEDS: enoxaparin 100 mg/mL Syringe SUBCUT ×2 (05:55→18:18)
[2021-12-06] MEDS: potassium chloride ER 10 mEq Tablet PO (05:55)
[2021-12-06] MEDS: docusate sodium 100 mg Capsule PO (05:55)
[2021-12-06 06:51] LABS: Glucose Point of Care 185 mg/dL (70-110)
[2021-12-06] MEDS: ipratropium-albuterol 3 mL Neb INHALATION ×4 (08:21→20:01)
[2021-12-06] MEDS: insulin lispro 100 unit/1 mL SUBCUT ×2 (08:52→18:22)
[2021-12-06] MEDS: FUROsemide 10 mg/mL SDV 4mL 40 MG IVP (08:53)
[2021-12-06] MEDS: magnesium oxide 400 mg tablet PO ×2 (08:54→18:23)
[2021-12-06] MEDS: sennosides-docusate Tablet 1 TAB PO (08:54)
[2021-12-06] MEDS: metoprolol tartrate 25 mg Tablet PO ×2 (08:58→10:57)
--- NOTE | 2021-12-06 10:19 | PM.PN ---
Subjective Subjective: A. fib RVR has improved Currently on metoprolol Patient is endorsing feeling better Currently on 4 L Creatinine 1.8 1 L urine output Vitals/I&O/Wt Last Vital Signs Temp 98.2 F 12/06/21 08:11 Pulse 94 12/06/21 08:24 Resp 16 12/06/21 08:24 BP 150/91 12/06/21 08:11 Pulse Ox 95 12/06/21 08:24 O2 Del Method 12/06/21 08:24 O2 Flow Rate 4 12/06/21 08:24 FiO2 4 12/05/21 14:05 12/05/21 12/06/21 12/06/21 22:59 06:59 14:59 Intake Total 600 / 600 120 / 720 Output Total 200 / 200 600 / 800 200 / 200 Balance 400 / 400 -480 / -80 -200 / -200 Weight last 48 hrs Weight 106.594 kg Weight 106.594 kg Physical Exam Narrative: Awake and alert Signs of CHF Extremity edema positive Bilateral breast without active crackles Currently on 4 L Awake and alert Nonfocal neuro exam Data : 12/06/21 02:37 12/06/21 02:37 A&P Assessment and plan (1) CHF exacerbation: (2) New onset a-fib: (3) Nocturnal hypoxia: (4) Severe aortic valve stenosis: (5) Emphysema of lung: Plan Acute systolic congestive heart failure exacerbation Previous EF 38% Recent TAVR A. fib RVR heart rate improved with metoprolol continue therapeutic Lovenox Patient is full code Currently on cardiac diet Repeat echo Modified metoprolol dose Continue Lasix, will increase the dose Acute on chronic kidney disease cardiorenal Full code Cardiac diet Currently on therapeutic Lovenox might need to change it to once daily instead of twice a day because of worsening of creatinine Attestations Medical Necessity Statement*: Continue hospitalization Time Spent in Patient Care: 40 Coding Level of Care Code Acute Senior Tax Specialist for Chg Fwd Diagnoses CHF exacerbation I50.9 New onset a-fib I48.91 Nocturnal hypoxia G47.34 Severe aortic valve stenosis I35.0 Emphysema of lung J43.9
[2021-12-06 10:51] LABS: Glucose Point of Care 134 mg/dL (70-110)
--- NOTE | 2021-12-06 11:06 | PC.CHAP ---
Pastoral Care Encounter/Spiritual Assessment Type of Contact [] Declined video operator visit [] Patient/Family/Request visit [] Outpatient visit [] Follow-up visit [] Physician referral [] Code/Alert [x] Routine visit [] Staff referral [] Actively dying [] Patient sleeping [] Family support [] [] Out of room [] Palliative care [] [] Receiving care in room [] Pre-surgical visit [] Trauma [] Long length of stay [] ICU visit [] Other: Relational/Emotional Strength [x] Patient feels connected with others/family/visitors/staff [] Distress [] Loneliness/isolation [] Abandonment Spirituality of Patient [x] Person of Suzie [x] Attends Mormonism of their Suzie [x] Believes in Prayer [x] Reads Bible or Methodist materials [x] There are Spiritual issues to be addressed Shirt Trimmer Interventions [x] Prayer [x] Active listening [] Non-anxious presence [x] Spiritual/emotional support [] Crisis/trauma care [] Spiritual counseling [] Bereavement support [] Provided bereavement packet [x] Provided Bible/devotional materials [] Provided toy/stuffed animal, coloring book to patient or family member [] Provided Communion [] Anointing/[place] [] Salvation [x] Completed spiritual assessment [] Other: Impact on Illness or Injury [] Angry [] Fearful [] Anxious [] Often cries [] Exhaustion [] Unable to work [] Unable to attend latter day [] Unable to walk/stand [] Unable to read [] Unable to drive [] Unable to eat/drink [] Unable to sleep [] Unable to be with family [] Patient intubated [] Other: Summary Time spent with patient 10 min
[2021-12-06 17:26] LABS: Glucose Point of Care 284 mg/dL (70-110)
[2021-12-06] MEDS: FUROsemide 10 mg/mL SDV 10mL 60 MG IVP (18:22)
[2021-12-06] MEDS: metoprolol tartrate 50 mg Tablet PO (20:12)
[2021-12-07] VITALS (11 sets, daily range): BP systolic 111–171; BP diastolic 66–98; PULSE 42–105; RESP 17–24; TEMP 36.4–36.8; O2SAT 85–95
[2021-12-07 02:43] LABS: Basophils # 0.1 10^3/uL (0.0-0.1); Basophils % 0.7 %; Eosinophils # 0.1 10^3/uL (0.0-0.8); Eosinophils % 1.3 %; Hemoglobin 12.7 g/dL (11.7-16.6); Lymphocytes # 1.2 10^3/uL (0.8-4.8); Lymphocytes % 11.4 %; Mean Corpuscular HGB Conc 29.5 g/dL (30.0-36.0); Mean Corpuscular Hemoglobin 25.7 pg (28.0-34.0); Mean Platelet Volume 11.7 fL (7.4-10.4); Monocytes # 1.4 10^3/uL (0.2-0.9); Monocytes % 12.9 %; Neutrophils # 7.91 10^3/uL (1.8-7.7); Neutrophils % 73.1 %; Nucleated Red Blood Cells % 0.2 %; Platelet Count 268 10^3/cmm (130-400); Red Blood Count 4.94 10^6/uL (4.1-5.3); Red Cell Distribution Width 14.3 % (12.1-15.1); White Blood Count 10.8 10^3/uL (4.0-10.0)
[2021-12-07 02:55] LABS: Anion Gap 20.3 (5-19); Blood Urea Nitrogen 36 mg/dL (8-23); Calcium 9.2 mg/dL (8.5-10.5); Carbon Dioxide 27 mmol/L (22-29); Chloride 98 mmol/L (98-107); Glucose 136 mg/dL (65-115); Osmolality Calculated 302 mOsm/kg (285-295); Potassium 4.3 mmol/L (3.5-5.1); Sodium 141 mmol/L (136-145)
[2021-12-07] MEDS: enoxaparin 100 mg/mL Syringe SUBCUT ×2 (05:06→18:43)
[2021-12-07] MEDS: FUROsemide 10 mg/mL SDV 10mL 60 MG IVP ×2 (05:06→18:43)
[2021-12-07] MEDS: aspirin 81 mg EC Tablet PO (05:06)
[2021-12-07] MEDS: potassium chloride ER 10 mEq Tablet PO (05:06)
[2021-12-07] MEDS: pantoprazole DR 40 mg Tablet PO (05:06)
[2021-12-07] MEDS: docusate sodium 100 mg Capsule PO (05:06)
[2021-12-07 06:27] LABS: Glucose Point of Care 172 mg/dL (70-110)
[2021-12-07] MEDS: ipratropium-albuterol 3 mL Neb INHALATION ×4 (08:35→21:22)
[2021-12-07] MEDS: magnesium oxide 400 mg tablet PO ×2 (08:55→18:44)
[2021-12-07] MEDS: metoprolol tartrate 50 mg Tablet PO ×2 (08:55→20:33)
[2021-12-07] MEDS: sennosides-docusate Tablet 1 TAB PO (08:55)
[2021-12-07] MEDS: insulin lispro 100 unit/1 mL SUBCUT ×3 (08:55→18:44)
--- NOTE | 2021-12-07 09:31 | P.CONIM_ITS ---
Providers/Reason For Consult Consulting Physician/Specialty*: Dr. Montero, cardiology Reason for Consult*: Atrial flutter with rapid ventricular response, congestive heart failure with drop in ejection fraction Attending Physician: Corinne Guillen MD History of Present Illness History of Present Illness Vijay Barajas is a 81 year old male with PMhx of CHF, HTN, COPD on home oxygen, DM-2, h/o CVA, dyslipidemia, former smoker, history of left carotid artery stent, chronic kidney disease stage III and iron deficiency anemia. Patient also has history of CAD with PCI to mid LAD on 10 August 2021. Patient underwent transcatheter aortic valve replacement with 29 mm DANGELO S3 valve via right femoral artery on [address] Boyer. Postprocedure echo showed normal functioning aortic valve ejection fraction of 30%. He presented to the hospital with complaints of shortness of breath, progressively worsening lower extremity edema for the last month, generalized weakness and fatigue.? Patient lives with his daughter. At home he noticed his heart rate was in low 30s and came to the ER. He was found to be in atrial flutter with rapid response. No chest pain, nausea, vomiting, recent fever, diarrhea or vomiting.? He underwent echocardiogram that showed severely decreased LV function with ejection fraction of 15 to 20% with global hypokinesis. I have been asked to evaluate the patient given decrease in LV function. Review of Systems Const: Denies: fever(s) Eyes: Denies: change in vision ENMT: Denies: throat pain Card: Reports: edema, swelling of feet/ankles and dyspnea on exertion; Denies: chest pain, syncope or orthopnea Resp: Reports: dyspnea GI: Denies: abdominal pain : Denies: flank pain Musc: Denies: neck pain Skin/Breast: Denies: rash Neuro: Denies: headache(s), numbness in extremities or weakness in extremities Psych: Denies: anxiety Endo: Denies: polyuria Trey/Lymph: Denies: easy bruising, petechiae or purpura All/Imm: Denies: urticaria Medications/Allergies Home Medications Medication Instructions Recorded Confirmed Last Taken Type albuterol sulfate 90 mcg/actuation 2 puff inhalation Q6H PRN 02/05/20 12/05/21 Unknown Rx aerosol inhaler shortness of breath or wheezing 30 days #18 grams clopidogrel 75 mg tablet (Plavix) 75 mg PO QAM 02/05/20 12/05/21 12/05/21 History docusate sodium 100 mg capsule 100 mg PO QAM 02/05/20 12/05/21 12/05/21 History (Colace) furosemide 40 mg tablet (Lasix) 20 mg PO QAM 02/05/20 12/05/21 12/05/21 History insulin detemir U-100 100 unit/mL 40 unit SUBCUT QAM 02/05/20 12/05/21 12/05/21 History (3 mL) subcutaneous pen (Levemir FlexTouch U-100 Insulin) metformin 1,000 mg tablet 1,000 mg PO BID 02/05/20 12/05/21 12/05/21 History pantoprazole 40 mg tablet,delayed 40 mg PO QAM 02/05/20 12/05/21 12/05/21 History release (Protonix) tramadol 50 mg tablet 50 - 100 mg PO Q8H PRN Pain 02/05/20 12/05/21 Unknown History aspirin 81 mg tablet,delayed 81 mg PO QAM 12/05/21 12/05/21 12/05/21 History release dulaglutide 1.5 mg/0.5 mL 1.5 mg SUBCUT Q7D 12/05/21 12/05/21 11/29/21 History subcutaneous pen injector (Trulicity) lisinopril 5 mg tablet 5 mg PO QAM 12/05/21 12/05/21 12/05/21 History potassium chloride 10 mEq 10 meq PO QAM 12/05/21 12/05/21 12/05/21 History tablet,extended release potassium gluconate 550 mg (90 mg) 550 mg PO QAM 12/05/21 12/05/21 12/05/21 History tablet umeclidinium 62.5 mcg-vilanterol 1 inh inhalation DAILY PRN unknown 12/05/21 12/05/21 Unknown History 25 mcg/actuation powdr for inhalation (Anoro Ellipta) Allergies Allergy/AdvReac Type Severity Reaction Status Date / Time Sulfa (Sulfonamide AdvReac ADR/ALGY-Pa Verified 12/05/21 15:19 Antibiotics) lpitations Current Medications Generic Name Dose Route Start Last Admin Trade Name Freq PRN Reason Stop Dose Admin Albuterol/Ipratropium 3 ml 12/06/21 08:00 12/07/21 08:35 Ipratropium-Albuterol 3 Ml Neb INHALATION 3 ml QID.RESPIRATORY ED Administration Aspirin 81 mg 12/06/21 06:00 12/07/21 05:06 Aspirin 81 Mg Ec Tablet PO 81 mg QAM ED Administration Docusate Sodium 100 mg 12/06/21 06:00 12/07/21 05:06 Docusate Sodium 100 Mg Capsule PO 100 mg QAM ED Administration Enoxaparin Sodium 100 mg 12/05/21 18:30 12/07/21 05:06 Enoxaparin 100 Mg/Ml Syringe SUBCUT 100 mg Q12H ED Administration Furosemide 60 mg 12/06/21 18:00 12/07/21 05:06 Furosemide 10 Mg/Ml Sdv 10ml IVP 60 mg Q12H ED Administration Insulin Detemir 40 unit 12/06/21 06:00 12/07/21 05:06 Insulin Detemir 100 Units/1 Ml SUBCUT 40 unit QAM ED Administration Insulin Human Lispro 0 unit 12/05/21 18:00 12/07/21 08:55 Insulin Lispro 100 Unit/1 Ml SUBCUT 4 unit TIDWM ED Administration Protocol Lisinopril 5 mg 12/06/21 06:00 12/06/21 05:54 Lisinopril 5 Mg Tablet PO 5 mg QAM ED Administration Magnesium Oxide 400 mg 12/05/21 18:00 12/07/21 08:55 Magnesium Oxide 400 Mg Tablet PO 400 mg BID DE Administration Metoprolol Tartrate 50 mg 12/06/21 21:00 12/07/21 08:55 Metoprolol Tartrate 50 Mg Tablet PO 50 mg BID@0900,2100 ED Administration Pantoprazole Sodium 40 mg 12/06/21 06:00 12/07/21 05:[address] 40 Mg Tablet PO 40 mg QAM ED Administration Potassium Chloride 10 meq 12/06/21 06:00 12/07/21 05:06 Potassium Chloride Er 10 Meq Tablet PO 10 meq QAM ED Administration Senna/Docusate Sodium 1 tab 12/06/21 09:00 12/07/21 08:55 Sennosides-Docusate Tablet PO 1 tab DAILY ED Administration PFSH Acute PFSH: Medical History Chronic systolic (congestive) heart failure Depression Encounter for nasogastric (NG) tube placement HTN (hypertension) Hypertensive heart disease with acute diastolic congestive heart failure Mixed hyperlipidemia 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 Stroke Type 2 diabetes mellitus Surgical History Hx of tonsillectomy Family History Mother Diabetes Father Diabetes Congestive heart failure Brother Diabetes Sister Diabetes Grandmother Diabetes Family/Other Diabetes Social History Smoking and tobacco status: former smoker Quit status (tobacco): has quit using tobacco Year quit tobacco: 1968 - 1PPD x 10 Years Second hand smoke exposure: No Alcohol intake: never Lives independently: Yes Household members: family Marital status: Current occupational status: retired History of recent travel: No Current gender identity: Male Vitals/I&O/Wt Last Vital Signs Temp 97.7 F 12/07/21 04:00 Pulse 104 H 12/07/21 08:36 Resp 20 H 12/07/21 08:36 BP 117/66 12/07/21 04:00 Pulse Ox 92 12/07/21 08:36 O2 Del Method 12/07/21 08:36 O2 Flow Rate 4 12/07/21 08:36 FiO2 4 12/05/21 14:05 12/06/21 12/07/21 12/07/21 22:59 06:59 14:59 Intake Total 480 / 960 480 / 1440 Balance 480 / 760 480 / 1240 Weight last 48 hrs Weight 235 lb Weight 235 lb Physical Exam Narrative: GENERAL: Obese man laying in bed in no acute distress HEENT: Extraocular movement intact. No pallor or icterus. NECK: central trachea, Mild JVD,No carotid bruit. CARDIOVASCULAR SYSTEM: S1-S2 irregular. Systolic murmur + RESPIRATORY SYSTEM: Chest clear to auscultation. No wheezes rhonchi or rubs heard. ABDOMEN: Soft, nontender and nondistended. Normal bowel sounds present. No hepatosplenomegaly appreciated. EXTREMITIES: No cyanosis, 3+ b/l leg edema. No signs of chronic venous insufficiency. 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 SKIN: Normal turgor and temperature. No breakdown, rash or nail changes noted. PSYCH: Normal insight and judgment. Data : 12/07/21 02:20 12/08/21 02:22 Other data: Records were received from [facility] in [place] and reviewed: Cardiac catheterization 10 August 2021: High-grade mid LAD 90% stenosis underwent orbital atherectomy followed by 2.5 x 20 mm Synergy stent. Ostial circumflex 50% and proximal RCA 60% stenosis was medically managed. TTE (12/05/21) CONCLUSIONS ?LV systolic function is severely reduced with EF of 15-20%. ?Severe global hypokinesis. ?RV is dilated and hypokinetic ?Biatrial englargement ?Mild mitral to moderate mitral regurgitation ?Bioprosthetic aortic valve. Mild to moderate aortic ?regurgitation. DVI is 026. Normally functioning aortic valve. ?Mean gradient across aortic valve of 10mmHg. ?Mild to moderate tricuspid regurgitation. Moderate pulmonary ?hypertension ?Mild pulmonic regurgitation ?Mildly dilated ascending aorta ?Elevated RA pressure ?Compared to prior echocardiogram from 06/2021, patient now has ?bioprosthetic aortic valve and LV systolic function has ?decreased further. TTE (07/01/21) ?CONCLUSIONS ?Severe low gradient aortic valve stenosis with a valve area of ?0.71 cm2 and a valve index of .32.? The peak velocity was 3.9 ?m/s with a peak gradient of 61 and a mean gradient of 32. ?Trace aortic valve regurgitation. ?Diffuse hypokinesia of the left ventricle with? an ejection ?fraction of 38%.? Somewhat dyskinetic basal septal segment. ?Normal RV size with a slightly diminished ejection fraction. ?Thickened mitral valve with moderate mitral annular ?calcification. ?Mild tricuspid annular calcification.? Pulmonary artery peak ?systolic pressure was 27 mmHg ?There is no pericardial effusion. ?There are no intracardiac masses. ?Compared to the study from 12/19/2018, there is a significant ?drop in the LV ejection fraction.? The there is worsening of the ?aortic valve stenosis as well.? The ejection fraction was 60 to ?65%. # Carotid duplex (02/2018): 60-69% stenosis of right ICA. Functioning left carotid srtery stent. [facility] (12/25/18) Diagnostic Cath Status: Elective Diagnostic Findings Patient was sent for angiography primarily to evaluate aortic valve disease. Right heart catheterization, left heart catheterization, thermodilution cardiac outputs, left ventriculography, coronary angiography were performed. Separate pigtail catheters were placed above and below the aortic valve. One placed in the right common femoral artery and the other in the right radial artery. The right heart catheterization was done from the right common femoral vein. Right atrial pressure is 11/14 with a mean of 9. Right ventricular pressure 33/9. Pulmonary capillary wedge pressure 10/8 with a mean of 9. Pulmonary artery pressure 29/15. Thermodilution cardiac output 6 L/m. Cardiac index 2.6 L/m/m. Mean gradient across aortic valve 23 mmHg. Aortic valve area 1.15 cm. The patient was very hypertensive during the examination with systolic blood pressures well above 200 and diastolic blood pressures well above 100. Coronary angiography reveals right coronary artery dominance. The left main is short and mildly calcified. There is 30% stenosis distally. The circumflex exhibits a 70% stenosis in the ostium. Beyond this there are 3 obtuse marginal branches. First one comes off very high and could be considered a ramus branch. The second one contains a 60% stenosis in the proximal portion. The third also contains a 60% proximal stenosis. The left anterior descending is a moderate-sized vessel and contains no significant disease. The right coronary artery is a large dominant vessel and ends distally as several posterior left ventricular branches and a posterior descending artery. In the midportion there is a 30-40% stenosis. PCI Status: Elective Conclusions Moderate two-vessel coronary artery disease. Lower limit of normal left ventricular function. Moderate aortic stenosis. Mild pulmonary hypertension. A&P Assessment and plan (1) Atrial flutter: Newly diagnosed atrial flutter with rapid response -agree with metoprolol and therapeutic lovenox -asymptomatic at the time of evaluation -continue to monitor on telemetry (2) CHF exacerbation: HFrEF (30%) on echo post TAVR -Echo ejection fraction 15-20% on recent echo with global hypokinesis. Bioprosthetic aortic valve. Mild to moderate aortic ?regurgitation. DVI is 026. Normally functioning aortic valve. ?Mean gradient across aortic valve of 10mmHg -Will consider stress testing to assess moderate ostial LCx and Px RCA lesions -continue with lasix 60 mg IV BID -UO not well charted, patient denied salguero catheter. -On lisinopril 5 mg. -will need life vest before discharge. This was discussed with POA (daughter). (3) Dilated cardiomyopathy: Out of proportion to known CAD -predominantly non ischemic in etiology Plan Mild to moderate mitral and tricuspid valve regurgitation Status post transcatheter aortic valve replacement in 07/2021 Coronary artery disease s/p mid LAD orbital atherectomy and drug-eluting stent placement in July 2021 Diabetes mellitus type 2 COPD Consult Attestations Time Spent in Patient Care: Greater than 35 minutes Coding Level of Care Code Acute Prosthetic Aides Teacher for Eliasg Fwd Diagnoses Atrial flutter I48.92 CHF exacerbation I50.9 Dilated cardiomyopathy I42.0
[2021-12-07 12:11] LABS: Glucose Point of Care 247 mg/dL (70-110)
--- NOTE | 2021-12-07 13:27 | PM.PN ---
Subjective Subjective: I have consulted health informatics specialist Dr. Montero We will request records from [facility] for his TAVR records EF is extremely reduced Patient is not complaining of any active symptoms He does not want Mccoy catheter placement his urine output has not been calculated appropriately Clinically he does seem a little better, requiring 4 L of oxygen No acute respite distress Blood pressure stable As per the nursing staff his heart rate dipped down to 42 at that time he refused to wear telemetry that strip was not recorded however heart rate was noted by the nurse he was asymptomatic at that time Vitals/I&O/Wt Last Vital Signs Temp 97.8 F 12/07/21 12:00 Pulse 65 12/07/21 12:09 Resp 18 12/07/21 12:09 BP 130/85 12/07/21 12:00 Pulse Ox 95 12/07/21 12:09 O2 Del Method 12/07/21 12:09 O2 Flow Rate 4 12/07/21 12:09 FiO2 4 12/05/21 14:05 12/06/21 12/07/21 12/07/21 22:59 06:59 14:59 Intake Total 480 / 960 480 / 1440 Balance 480 / 760 480 / 1240 Weight last 48 hrs Weight 106.594 kg Weight 106.594 kg Physical Exam Narrative: Clinical signs of fluid overload Currently on 4 L No crackles on lung auscultation but diminished breath sounds bilaterally Abdomen distended Petechia on abdominal wall Lower extremity edema present Awake and alert Nonfocal neuro exam Short attention span Data : 12/07/21 02:20 12/07/21 02:20 A&P Assessment and plan (1) Atrial flutter: (2) CHF exacerbation: (3) New onset a-fib: (4) Nocturnal hypoxia: (5) Severe aortic valve stenosis: Plan New onset atrial flutter/A. fib Recent TAVR We will request records Consulted cardiology Currently on therapeutic Lovenox Continue metoprolol Acute on chronic systolic CHF exacerbation It could be related to tachyarrhythmia EF is 10% Awaiting records from outside facility Continue IV diuresis Urine output has not been calculated appropriately Acute on chronic kidney disease: Creatinine today 1.9 no signs of hyperkalemia or acidosis Baseline creatinine seems to be around 1.3-1.6 Likely cardiorenal anticipating provement with further diuresis Type 2 diabetes hemoglobin A1c 8.9 Sliding scale Full code Cardiac diet DVT prophylaxis covered with therapeutic Lovenox Previous history of cardiac arrest patient does not have an AICD With EF 10% we will follow-up with cardiology if LifeVest could be arranged Attestations Medical Necessity Statement*: Continue medical management Time Spent in Patient Care: 40 Coding Level of Care Code Acute Workers' Compensation Magistrate for Chg Fwd Diagnoses Atrial flutter I48.92 CHF exacerbation I50.9 New onset a-fib I48.91 Nocturnal hypoxia G47.34 Severe aortic valve stenosis I35.0
[2021-12-07 18:00] LABS: Glucose Point of Care 255 mg/dL (70-110)
--- NOTE | 2021-12-07 19:08 | PC.NURSE ---
THIS NURSE ASSISTED PATIENT CARE NURSE IN MANUALLY IRRIGATING PATIENT EARLIER IN THE DAY AND RECEIVED SEVERAL CLOTS. STARTED ON CBI.
[2021-12-08] VITALS (14 sets, daily range): BP systolic 117–150; BP diastolic 61–108; PULSE 57–112; RESP 15–26; TEMP 36.7–36.8; O2SAT 92–97
[2021-12-08 03:11] LABS: Anion Gap 17.1 (5-19); Blood Urea Nitrogen 37 mg/dL (8-23); Carbon Dioxide 28 mmol/L (22-29); Chloride 97 mmol/L (98-107); Glucose 111 mg/dL (65-115); Osmolality Calculated 295 mOsm/kg (285-295); Potassium 4.1 mmol/L (3.5-5.1); Sodium 138 mmol/L (136-145)
[2021-12-08] MEDS: FUROsemide 10 mg/mL SDV 10mL 60 MG IVP ×2 (05:41→18:41)
[2021-12-08] MEDS: enoxaparin 100 mg/mL Syringe SUBCUT (05:41)
[2021-12-08] MEDS: docusate sodium 100 mg Capsule PO (05:42)
[2021-12-08] MEDS: pantoprazole DR 40 mg Tablet PO (05:42)
[2021-12-08] MEDS: potassium chloride ER 10 mEq Tablet PO (05:42)
[2021-12-08] MEDS: aspirin 81 mg EC Tablet PO (05:42)
[2021-12-08 07:50] LABS: Glucose Point of Care 87 mg/dL (70-110)
[2021-12-08] MEDS: ipratropium-albuterol 3 mL Neb INHALATION ×4 (07:52→21:05)
[2021-12-08] MEDS: sennosides-docusate Tablet 1 TAB PO (08:03)
[2021-12-08] MEDS: magnesium oxide 400 mg tablet PO ×2 (08:04→18:40)
[2021-12-08] MEDS: metoprolol tartrate 50 mg Tablet PO ×2 (08:04→21:51)
--- NOTE | 2021-12-08 10:39 | PM.PN ---
Subjective Subjective: Feels better, UO not documented Medications: Reviewed: Yes Vitals/I&O/Wt Last Vital Signs Temp 98.1 F 12/08/21 04:00 Pulse 90 12/08/21 07:57 Resp 18 12/08/21 07:57 BP 150/87 12/08/21 07:39 Pulse Ox 92 12/08/21 07:57 O2 Del Method 12/08/21 07:57 O2 Flow Rate 4 12/08/21 07:57 FiO2 4 12/07/21 08:00 12/07/21 12/08/21 12/08/21 22:59 06:59 14:59 Intake Total 370 / 470 380 / 850 360 / 360 Balance 370 / 470 380 / 850 360 / 360 Weight last 48 hrs Weight 263 lb 12.8 oz Physical Exam Narrative: GENERAL: Obese man laying in bed in no acute distress HEENT: Extraocular movement intact. No pallor or icterus. NECK: central trachea, Mild JVD,No carotid bruit. CARDIOVASCULAR SYSTEM: S1-S2 irregular. systolic murmur+ RESPIRATORY SYSTEM: Chest clear to auscultation. No wheezes rhonchi or rubs heard. ABDOMEN: Soft, nontender and nondistended. Normal bowel sounds present. No hepatosplenomegaly appreciated. EXTREMITIES: No cyanosis, 3+ b/l leg edema. No signs of chronic venous insufficiency. 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 SKIN: Normal turgor and temperature. No breakdown, rash or nail changes noted. PSYCH: Normal insight and judgment. Data : 12/07/21 02:20 12/08/21 02:22 Other data: Records were received from [facility] in [place] and reviewed: Cardiac catheterization 10 August 2021: High-grade mid LAD 90% stenosis underwent orbital atherectomy followed by 2.5 x 20 mm Synergy stent. Ostial circumflex 50% and proximal RCA 60% stenosis was medically managed. TTE (12/05/21) CONCLUSIONS ?LV systolic function is severely reduced with EF of 15-20%. ?Severe global hypokinesis. ?RV is dilated and hypokinetic ?Biatrial englargement ?Mild mitral to moderate mitral regurgitation ?Bioprosthetic aortic valve. Mild to moderate aortic ?regurgitation. DVI is 026. Normally functioning aortic valve. ?Mean gradient across aortic valve of 10mmHg. ?Mild to moderate tricuspid regurgitation. Moderate pulmonary ?hypertension ?Mild pulmonic regurgitation ?Mildly dilated ascending aorta ?Elevated RA pressure ?Compared to prior echocardiogram from 06/2021, patient now has ?bioprosthetic aortic valve and LV systolic function has ?decreased further. TTE (07/01/21) ?CONCLUSIONS ?Severe low gradient aortic valve stenosis with a valve area of ?0.71 cm2 and a valve index of .32.? The peak velocity was 3.9 ?m/s with a peak gradient of 61 and a mean gradient of 32. ?Trace aortic valve regurgitation. ?Diffuse hypokinesia of the left ventricle with? an ejection ?fraction of 38%.? Somewhat dyskinetic basal septal segment. ?Normal RV size with a slightly diminished ejection fraction. ?Thickened mitral valve with moderate mitral annular ?calcification. ?Mild tricuspid annular calcification.? Pulmonary artery peak ?systolic pressure was 27 mmHg ?There is no pericardial effusion. ?There are no intracardiac masses. ?Compared to the study from 12/19/2018, there is a significant ?drop in the LV ejection fraction.? The there is worsening of the ?aortic valve stenosis as well.? The ejection fraction was 60 to ?65%. # Carotid duplex (02/2018): 60-69% stenosis of right ICA. Functioning left carotid srtery stent. [facility] (12/25/18) Diagnostic Cath Status: Elective Diagnostic Findings Patient was sent for angiography primarily to evaluate aortic valve disease. Right heart catheterization, left heart catheterization, thermodilution cardiac outputs, left ventriculography, coronary angiography were performed. Separate pigtail catheters were placed above and below the aortic valve. One placed in the right common femoral artery and the other in the right radial artery. The right heart catheterization was done from the right common femoral vein. Right atrial pressure is 11/14 with a mean of 9. Right ventricular pressure 33/9. Pulmonary capillary wedge pressure 10/8 with a mean of 9. Pulmonary artery pressure 29/15. Thermodilution cardiac output 6 L/m. Cardiac index 2.6 L/m/m. Mean gradient across aortic valve 23 mmHg. Aortic valve area 1.15 cm. The patient was very hypertensive during the examination with systolic blood pressures well above 200 and diastolic blood pressures well above 100. Coronary angiography reveals right coronary artery dominance. The left main is short and mildly calcified. There is 30% stenosis distally. The circumflex exhibits a 70% stenosis in the ostium. Beyond this there are 3 obtuse marginal branches. First one comes off very high and could be considered a ramus branch. The second one contains a 60% stenosis in the proximal portion. The third also contains a 60% proximal stenosis. The left anterior descending is a moderate-sized vessel and contains no significant disease. The right coronary artery is a large dominant vessel and ends distally as several posterior left ventricular branches and a posterior descending artery. In the midportion there is a 30-40% stenosis. PCI Status: Elective Conclusions Moderate two-vessel coronary artery disease. Lower limit of normal left ventricular function. Moderate aortic stenosis. Mild pulmonary hypertension. A&P Assessment and plan (1) Atrial flutter: Newly diagnosed atrial flutter with rapid response -agree with metoprolol and therapeutic lovenox -asymptomatic at the time of evaluation -continue to monitor on telemetry -No significant bradycardic episodes (2) CHF exacerbation: HFrEF (30%) on echo post TAVR -Echo ejection fraction 15-20% on recent echo with global hypokinesis.Bioprosthetic aortic valve. Mild to moderate aortic ?regurgitation. DVI is 026. Normally functioning aortic valve. ?Mean gradient across aortic valve of 10mmHg -Will plan for stress test in am to assess moderate ostial LCx and Px RCA lesions -continue with lasix 60 mg IV BID -UO not well charted, patient denied salguero catheter. -On lisinopril 5 mg. -will need life vest before discharge. This was discussed with POA (daughter). (3) Dilated cardiomyopathy: Out of proportion to known CAD -predominantly non ischemic in etiology Plan Mild to moderate mitral and tricuspid valve regurgitation Status post transcatheter aortic valve replacement in 07/2021 Coronary artery disease s/p mid LAD orbital atherectomy and drug-eluting stent placement in July 2021 Diabetes mellitus type 2 COPD Attestations Medical Necessity Statement*: needs hospital stay for CHF and atrial flutter Time Spent in Patient Care: 16 - 35 minutes Coding Level of Care Code Acute Retail Analytics Manager for Anthony Pettit Diagnoses Atrial flutter I48.92 CHF exacerbation I50.9 Dilated cardiomyopathy I42.0
--- NOTE | 2021-12-08 10:45 | PC.CHAP ---
Pastoral Care Encounter/Spiritual Assessment Type of Contact [] Declined medical office professional instructor visit [] Patient/Family/Request visit [] Outpatient visit [] Follow-up visit [] Physician referral [] Code/Alert [x] Routine visit [] Staff referral [] Actively dying [] Patient sleeping [] Family support [] [] Out of room [] Palliative care [] [x] Receiving care in room [] Pre-surgical visit [] Trauma [x] Long length of stay [] ICU visit [] Other: Relational/Emotional Strength [x] Patient feels connected with others/family/visitors/staff [] Distress [] Loneliness/isolation [] Abandonment Spirituality of Patient [x] Person of Suzie [] Attends Taoism of their Suzie [x] Believes in Prayer [] Reads Bible or Uatsdin materials [] There are Spiritual issues to be addressed Larriman Helper Interventions [x] Prayer [x] Active listening [x] Non-anxious presence [x] Spiritual/emotional support [] Crisis/trauma care [x] Spiritual counseling [] Bereavement support [] Provided bereavement packet [] Provided Bible/devotional materials [] Provided toy/stuffed animal, coloring book to patient or family member [] Provided Communion [] Anointing/Kevin [] Salvation [x] Completed spiritual assessment [] Other: Impact on Illness or Injury [] Angry [] Fearful [x] Anxious [] Often cries [] Exhaustion [x] Unable to work [] Unable to attend catholic [] Unable to walk/stand [] Unable to read [] Unable to drive [] Unable to eat/drink [] Unable to sleep [] Unable to be with family [] Patient intubated [] Other: Summary senior heart nrate waiting to see what the doctor says has good attitude well go home at some point Time spent with patient 10 mins
[2021-12-08 11:04] LABS: Glucose Point of Care 586 mg/dL (70-110)
[2021-12-08] MEDS: insulin lispro 100 unit/1 mL SUBCUT ×2 (11:23→18:40)
--- NOTE | 2021-12-08 11:58 | P.PN_ITS ---
Subjective Subjective: Telemetry did not show significant arrhythmia however as per the nursing staff couple episodes in 40s were noted A. fib without RVR Patient is noticing feeling better No active chest pain or shortness of breath We are still unable to collect urine output from Mccoy He does not want Mccoy catheter placement We will follow-up with cardiology for further plan I have requested LifeVest for him Vitals/I&O/Wt Last Vital Signs Temp 98.3 F 12/08/21 11:32 Pulse 75 12/08/21 11:32 Resp 15 12/08/21 11:32 BP 121/79 12/08/21 11:32 Pulse Ox 93 12/08/21 11:32 O2 Del Method 12/08/21 11:32 O2 Flow Rate 4 12/08/21 11:16 FiO2 4 12/07/21 08:00 12/07/21 12/08/21 12/08/21 22:59 06:59 14:59 Intake Total 370 / 470 380 / 850 360 / 360 Balance 370 / 470 380 / 850 360 / 360 Weight last 48 hrs Weight 115.984 kg Weight 119.658 kg Physical Exam Narrative: Patient is sitting at the bedside Signs of CHF present however improving Bilateral lower extremity edema Bilateral breath sounds with mild rhonchi EMR) Nonfocal neuro exam Bilateral breath sounds with mild rhonchi, diminished breath sounds at the bases of the lungs Currently patient is on 4 L Pleasant and cooperative Signs of sepsis present Data : 12/07/21 02:20 12/08/21 02:22 Micro: Acute systolic congestive heart exacerbation EF 10% cardiology consulted Continue diuresis Will arrange LifeVest for the patient Signs of good diuresis Recent TAVR, requested records A. fib without RVR continue AV ramona blocking agent and anticoagulation agent Couple episodes of bradycardia in 40s noted Continue therapeutic Lovenox Cardiac diet DVT prophylaxis covered Continue sliding-scale Full code Hypoxia requires 4 L oxygen at baseline at home, no acute worsening A&P Assessment and plan (1) Dilated cardiomyopathy: (2) Atrial flutter: (3) Heart failure with reduced ejection fraction: (4) Nocturnal hypoxia: (5) New onset a-fib: Plan Continue medical management Attestations Medical Necessity Statement*: 30 Coding Level of Care Code Acute Child Development Associate Teacher for [facility] Fwd Diagnoses Dilated cardiomyopathy I42.0 Atrial flutter I48.92 Heart failure with reduced ejection fraction I50.20 Nocturnal hypoxia G47.34 New onset a-fib I48.91
[2021-12-08 14:01] LABS: Glucose Point of Care 212 mg/dL (70-110)
[2021-12-08 14:14] LABS: Estmated Average Glucose 212
[2021-12-08 16:53] LABS: Glucose Point of Care 193 mg/dL (70-110)
--- NOTE | 2021-12-08 16:59 | ECG_ITS ---
[facility] Test Date: 2021-12-09 Pat Name: Vijay aBrajas Department: Room: 276 Gender: Male Reading Tutor: : 1940 Requested By: Ricarda Montero Order Number: [id number] Balbir MD: Ricarda Montero M.D. Interpretive Statements NAME OF STUDY: LEXISCAN SESTAMIBI STRESS TEST INDICATION: Congestive heart failure with decrease in LV function PROCEDURE: At the baseline, the blood pressure was 104/46 mmHg with a heart rate of 95 bpm. The electrocardiogram showed atrial flutter with variable conduction. Normal axis. Nonspecific ST-T wave changes. The Lexiscan was infused over a period of 20 seconds. A total of 0.4 milligrams of Lexiscan was infused. The stress phase was continued for a total of 5 minutes. Heart rate at the end of the stress phase was 91 bpm with a blood pressure of 124/74 mmHg. The EKG at the peak infusion revealed atrial fibrillation with variable conduction. No significant ST-T wave changes. The study was terminated due to protocol completion. Isolated PVCs and PVC couplet noted frequently during Lexiscan infusion. Sestamibi was injected 20 seconds after the Lexiscan infusion. Blood pressure at the end of the recovery phase was 124/72 mmHg with a heart rate of 91 beats per minute. CONCLUSION: 1. No significant EKG changes with the LexiScan infusion. 2. No LexiScan induced chest pain or cardiac arrhythmia. 3. Normal blood pressure and heart rate response. 4. Sestamibi/sestamibi perfusion scan pending; see separate report. Electronically Signed On 12-12-2021 10:02:47 CDT by Ricarda Montero M.D. [id number]
[2021-12-08] MEDS: enoxaparin 120 mg/0.8 mL Syringe SUBCUT (18:41)
[2021-12-08 20:54] LABS: Glucose Point of Care 301 mg/dL (70-110)
[2021-12-09] VITALS (16 sets, daily range): BP systolic 106–170; BP diastolic 57–90; PULSE 65–105; RESP 13–23; TEMP 36.4–36.8; O2SAT 91–97
[2021-12-09 05:24] LABS: Basophils # 0.1 10^3/uL (0.0-0.1); Basophils % 0.8 %; Eosinophils # 0.3 10^3/uL (0.0-0.8); Eosinophils % 2.7 %; Hematocrit 39.8 % (42.0-52.0); Hemoglobin 11.8 g/dL (11.7-16.6); Lymphocytes # 0.9 10^3/uL (0.8-4.8); Lymphocytes % 9.6 %; Mean Corpuscular HGB Conc 29.6 g/dL (30.0-36.0); Mean Corpuscular Hemoglobin 25.7 pg (28.0-34.0); Mean Corpuscular Volume 86.7 fl (80-94); Mean Platelet Volume 12.2 fL (7.4-10.4); Monocytes # 1.1 10^3/uL (0.2-0.9); Monocytes % 11.5 %; Neutrophils % 74.7 %; Nucleated Red Blood Cells % 0.2 %; Platelet Count 286 10^3/cmm (130-400); Red Blood Count 4.59 10^6/uL (4.1-5.3); Red Cell Distribution Width 14.4 % (12.1-15.1); White Blood Count 9.2 10^3/uL (4.0-10.0)
[2021-12-09 05:53] LABS: Anion Gap 16.6 (5-19); Blood Urea Nitrogen 42 mg/dL (8-23); Carbon Dioxide 34 mmol/L (22-29); Chloride 97 mmol/L (98-107); Glucose 132 mg/dL (65-115); Osmolality Calculated 310 mOsm/kg (285-295); Potassium 3.6 mmol/L (3.5-5.1); Sodium 144 mmol/L (136-145)
[2021-12-09] MEDS: potassium chloride ER 10 mEq Tablet PO (06:27)
[2021-12-09] MEDS: pantoprazole DR 40 mg Tablet PO (06:27)
[2021-12-09] MEDS: docusate sodium 100 mg Capsule PO (06:27)
[2021-12-09 06:28] LABS: Glucose Point of Care 141 mg/dL (70-110)
[2021-12-09] MEDS: enoxaparin 120 mg/0.8 mL Syringe SUBCUT ×2 (06:29→17:50)
[2021-12-09] MEDS: FUROsemide 10 mg/mL SDV 10mL 60 MG IVP ×2 (06:36→17:51)
[2021-12-09] MEDS: ipratropium-albuterol 3 mL Neb INHALATION ×4 (07:57→20:05)
[2021-12-09] MEDS: sennosides-docusate Tablet 1 TAB PO (08:12)
[2021-12-09] MEDS: magnesium oxide 400 mg tablet PO ×2 (08:12→17:51)
[2021-12-09] MEDS: metoprolol tartrate 50 mg Tablet PO ×2 (08:13→20:22)
[2021-12-09] MEDS: clopidogrel 75 mg Tablet PO (08:13)
--- NOTE | 2021-12-09 10:28 | PC.CHAP ---
Pastoral Care Encounter/Spiritual Assessment Type of Contact [] Declined road maker visit [] Patient/Family/Request visit [] Outpatient visit [] Follow-up visit [] Physician referral [] Code/Alert [x] Routine visit [] Staff referral [] Actively dying [] Patient sleeping [x] Family support [] [] Out of room [] Palliative care [] [] Receiving care in room [] Pre-surgical visit [] Trauma [] Long length of stay [] ICU visit [] Other: Relational/Emotional Strength [x] Patient feels connected with others/family/visitors/staff [] Distress [] Loneliness/isolation [] Abandonment Spirituality of Patient [x] Person of Suzie [] Attends Tenriism of their Suzie [] Believes in Prayer [] Reads Bible or Jew materials [] There are Spiritual issues to be addressed Compensation And Benefits Analyst Interventions [x] Prayer [x] Active listening [] Non-anxious presence [] Spiritual/emotional support [] Crisis/trauma care [] Spiritual counseling [] Bereavement support [] Provided bereavement packet [] Provided Bible/devotional materials [] Provided toy/stuffed animal, coloring book to patient or family member [] Provided Communion [] Anointing/[place] [] Salvation [x] Completed spiritual assessment [] Other: Impact on Illness or Injury [] Angry [] Fearful [] Anxious [] Often cries [] Exhaustion [] Unable to work [] Unable to attend shinto [] Unable to walk/stand [] Unable to read [] Unable to drive [] Unable to eat/drink [] Unable to sleep [] Unable to be with family [] Patient intubated [] Other: Summary Time spent with patient 10 min
--- NOTE | 2021-12-09 10:41 | P.PN_ITS ---
Subjective Subjective: Dr. Lopez has recommended stress test I have reviewed his records from outside facility EF was 30% LAD arthrectomy was done He had proximal RCA lesion 60% Proximal circumflex 50% stenosis Mid LAD 90% stenosis Status post TAVR Patient is endorsing feeling better Vitals/I&O/Wt Last Vital Signs Temp 97.5 F L 12/09/21 08:02 Pulse 95 12/09/21 08:03 Resp 13 12/09/21 08:02 BP 170/74 12/09/21 08:02 Pulse Ox 93 12/09/21 08:02 O2 Del Method 12/09/21 08:02 O2 Flow Rate 4 12/09/21 07:58 FiO2 4 12/07/21 08:00 12/08/21 12/09/21 12/09/21 22:59 06:59 14:59 Intake Total 360 / 960 1300 / 2260 Balance 360 / 960 1300 / 2260 Weight last 48 hrs Weight 116.392 kg Weight 115.984 kg Weight 119.658 kg Physical Exam Narrative: Awake and alert Sitting at the bedside and watching television Currently on 4 L Bilateral breath sounds without active crackles Abdomen distended, lower extremity significant edema Pleasant during my evaluation Hemodynamically stable No active focal deficit Data : 12/09/21 04:28 12/09/21 04:28 A&P Assessment and plan (1) Dilated cardiomyopathy: (2) Heart failure with reduced ejection fraction: (3) Atrial flutter: (4) CHF exacerbation: (5) New onset a-fib: (6) Nocturnal hypoxia: (7) Severe aortic valve stenosis: Plan Acute on chronic systolic CHF exacerbation EF is 10% Reduced action fraction heart failure/cardiomyopathy History of coronary disease Patient will need LifeVest He is at risk of sudden cardiac arrest He has history of cardiac arrest in the past There is utmost importance to obtain LifeVest No active chest pain Cardiology on board Appreciate their recommendations Continue diuresis New onset A. fib without RVR continue AV ramona blocking agents Currently he is getting therapeutic Lovenox he might need Eliquis at the time of discharge Sugar within normal range Continue sliding scale No signs of significant bradycardia arrhythmia on telemetry Patient does not need a pacemaker at this point Further plan will be made after his cardiac stress test today Attestations Medical Necessity Statement*: Continue medical management Time Spent in Patient Care: 40 Coding Level of Care Code Acute Remote Broadcast Engineer for [facility] Diagnoses Dilated cardiomyopathy I42.0 Heart failure with reduced ejection fraction I50.20 Atrial flutter I48.92 CHF exacerbation I50.9 New onset a-fib I48.91 Nocturnal hypoxia G47.34 Severe aortic valve stenosis I35.0
[2021-12-09 10:57] LABS: Glucose Point of Care 132 mg/dL (70-110)
[2021-12-09] MEDS: regadenoson 0.4 Mg/5 ml Syringe IVP (11:54)
--- NOTE | 2021-12-09 12:48 | P.PN_ITS ---
Subjective Subjective: seen sitting by the side of bed; underwent stress test this morning Medications: Reviewed: Yes Vitals/I&O/Wt Last Vital Signs Temp 97.6 F 12/09/21 11:21 Pulse 85 12/09/21 12:10 Resp 22 H 12/09/21 11:21 BP 124/72 12/09/21 12:10 Pulse Ox 95 12/09/21 11:21 O2 Del Method 12/09/21 11:21 O2 Flow Rate 4 12/09/21 11:12 FiO2 4 12/07/21 08:00 12/08/21 12/09/21 12/09/21 22:59 06:59 14:59 Intake Total 360 / 960 1300 / 2260 Balance 360 / 960 1300 / 2260 Weight last 48 hrs Weight 256 lb 9.6 oz Weight 255 lb 11.2 oz Weight 263 lb 12.8 oz Physical Exam Narrative: GENERAL: Obese man laying in bed in no acute distress HEENT: Extraocular movement intact. No pallor or icterus. NECK: central trachea, Mild JVD,No carotid bruit. CARDIOVASCULAR SYSTEM: S1-S2 irregular. No murmur present RESPIRATORY SYSTEM: Chest clear to auscultation. No wheezes rhonchi or rubs heard. ABDOMEN: Soft, nontender and nondistended. Normal bowel sounds present. No hepatosplenomegaly appreciated. EXTREMITIES: No cyanosis, 3+ b/l leg edema. No signs of chronic venous insufficiency. LARGE ANIMAL VETERINARIAN: Patient is alert No focal neurological deficits. SKIN: Normal turgor and temperature. No breakdown, rash or nail changes noted. PSYCH: Normal insight and judgment. Data : 12/09/21 04:28 12/09/21 04:28 A&P Assessment and plan (1) Atrial flutter: Newly diagnosed atrial flutter with rapid response -agree with metoprolol and therapeutic lovenox; may transition to Eliquis 5 mg BID -asymptomatic at the time of evaluation -continue to monitor on telemetry -No significant bradycardic episodes (2) CHF exacerbation: HFrEF (30%) on echo post TAVR -Echo ejection fraction 15-20% on recent echo with global hypokinesis. Bioprosthetic aortic valve. Mild aortic ?regurgitation. Normally functioning TAVR aortic valve.Mean gradient across aortic valve of 10mmHg -No ischemia on stress test. -continue with lasix 60 mg IV BID -UO not well charted, patient denied salguero catheter. -On lisinopril 5 mg. -will need life vest before discharge. This was discussed with POA (daughter). (3) Dilated cardiomyopathy: Out of proportion to known CAD -predominantly non ischemic in etiology Plan Mild to moderate mitral and tricuspid valve regurgitation Status post transcatheter aortic valve replacement in 07/2021 Coronary artery disease s/p mid LAD orbital atherectomy and drug-eluting stent placement in July 2021 Diabetes mellitus type 2 COPD Attestations Medical Necessity Statement*: needs hospital stay for management of atrial flutter and CHF Time Spent in Patient Care: 16 - 35 minutes Coding Level of Care Code Acute Adult Neurologist for [facility] Fwd Diagnoses Atrial flutter I48.92 CHF exacerbation I50.9 Dilated cardiomyopathy I42.0
[2021-12-09 16:52] LABS: Glucose Point of Care 177 mg/dL (70-110)
--- NOTE | 2021-12-09 16:59 | NMCV_ITS ---
NM jose d perf SPECT r/s* [id number] Vijay Barajas Age: 81 Gender: M : 1940 Exam Date: 12/09/2021 11:25 Ordering Phys: Ricarda Montero MD ([email or web address]) Technologist: LUISITO Boggs Exam Location: [facility] Indications: CHEST PAIN STRESS TEST Please see separate stress test report in [facility] for full findings IMAGE PROTOCOL Rest/Stress 1 Lexiscan Day Radiopharmaceutical Dose (mCi) Administration Site Administered by Rest: Tc-99m 11.0 IV LUISITO Cordova Sestamibi Stress:Tc-99m 32.6 IV LUISITO Cordova Sestamibi Rest: 09-Dec-2021 60 Discovery 630 Stress: 09-Dec-2021 30 Discovery 630 0.4mg Lexiscan. Supine position only as patient was unable to lay prone. SPECT RESULTS Technical Quality: Excellent Raw Data Analysis: Normal Image Corrections: No attenuation or motion correction applied Summed Stress Score: 5 Summed Rest Score: 6 Summed Difference Score: 0 PERFUSION FINDINGS Small sized perfusion abnormality of mid to apical inferior, mid inferolateral and apical son on rest images with improved tracer uptake in inferolateral wall. FUNCTIONAL RESULTS (calculated via Gated SPECT) Stress Image LV EF (%): 27 Stress EDV (mL):179 TID: 0.89 Stress ESV (mL):130 FUNCTIONAL FINDINGS: The left ventricle is normal in size. Transient Ischemia Dilatation of 0.89. The left ventricular ejection fraction is severely reduced with a value of 27%. There is global hypokinesis. Markedly increased end-diastolic end-systolic volumes. IMPRESSIONS 1. Small sized predominantly fixed perfusion abnormality of mid to apical inferior and apical son. 2. This may represent old myocardial infarction right coronary artery territory or attenuation artifact. 3. The left ventricular ejection fraction is severely reduced with a value of 27% with global hypokinesis. 4. EKG portion of the study will be reported separately. 5. No coronary ischemia based on the study. Ricarda Montero MD (Electronically Signed) Final Date: 09 December 2021 14:55 S
[2021-12-09] MEDS: insulin lispro 100 unit/1 mL SUBCUT (17:50)
[2021-12-09 21:01] LABS: Glucose Point of Care 309 mg/dL (70-110)
[2021-12-10 01:00] VITALS: BP 115/81; PULSE 90; RESP 20; TEMP 36.5; O2SAT 93
[2021-12-10 05:00] VITALS: BP 161/67; PULSE 63; RESP 19; TEMP 36.8; O2SAT 94
[2021-12-10] MEDS: potassium chloride ER 10 mEq Tablet PO (06:27)
[2021-12-10] MEDS: docusate sodium 100 mg Capsule PO (06:27)
[2021-12-10] MEDS: pantoprazole DR 40 mg Tablet PO (06:27)
[2021-12-10] MEDS: FUROsemide 10 mg/mL SDV 10mL 60 MG IVP (06:28)
[2021-12-10] MEDS: enoxaparin 120 mg/0.8 mL Syringe SUBCUT (06:30)
[2021-12-10 06:32] LABS: Glucose Point of Care 199 mg/dL (70-110)
[2021-12-10 08:04] VITALS: PULSE 86; RESP 17; O2SAT 95
[2021-12-10] MEDS: ipratropium-albuterol 3 mL Neb INHALATION (08:04)
[2021-12-10 08:09] VITALS: BP 166/99; PULSE 62; PULSE 87; RESP 18; TEMP 36.4; O2SAT 90
[2021-12-10] MEDS: magnesium oxide 400 mg tablet PO (08:57)
[2021-12-10] MEDS: clopidogrel 75 mg Tablet PO (08:57)
[2021-12-10] MEDS: sennosides-docusate Tablet 1 TAB PO (08:57)
[2021-12-10] MEDS: insulin lispro 100 unit/1 mL SUBCUT (08:58)
[2021-12-10] MEDS: metoprolol tartrate 50 mg Tablet PO (09:00)
--- NOTE | 2021-12-10 09:26 | P.PN_ITS ---
Subjective Subjective: Patient feeling better. Has mild shortness of breath. Heart rate is controlled. Vitals/I&O/Wt Last Vital Signs Temp 97.6 F 12/10/21 08:09 Pulse 62 12/10/21 08:09 Resp 18 12/10/21 08:09 BP 166/99 12/10/21 08:09 Pulse Ox 90 12/10/21 08:09 O2 Del Method 12/10/21 08:09 O2 Flow Rate 4 12/10/21 08:04 FiO2 4 12/07/21 08:00 12/09/21 12/10/21 12/10/21 22:59 06:59 14:59 Intake Total 480 / 480 720 / 1200 Balance 480 / 480 720 / 1200 Weight last 48 hrs Weight 252 lb 1.6 oz Weight 256 lb 9.6 oz Weight 255 lb 11.2 oz Physical Exam Narrative: GENERAL: Patient is alert, awake and oriented x3. [] NECK: No jugular vein distension. [] HEENT: No cyanosis. No icterus. No pallor. [] HEART: Regular S1 and S2. No murmur, rub or gallop. [] LUNGS: Diminished breath sounds with mild crackles bilaterally ABDOMEN: Soft CENTRAL NERVOUS SYSTEM: Grossly nonfocal. [] EXTREMITIES: Lower extremities with 1+ edema bilaterally. Data : 12/09/21 04:28 12/09/21 04:28 A&P Assessment and plan (1) Atrial flutter: Newly diagnosed atrial flutter with rapid response Continue Eliquis 5 mg daily and metoprolol. Can consider outpatient event monitor (2) CHF exacerbation: Continue outpatient diuretics. LifeVest Stress test does not show significant ischemia (3) Dilated cardiomyopathy: Out of proportion to known CAD -predominantly non ischemic in etiology Plan Patient is overall stable. Can be treated as outpatient. Please call with questions Attestations Medical Necessity Statement*: Care expected to cross 2 midnights Coding Level of Care Code Acute Director Community Organization for [facility] Diagnoses Atrial flutter I48.92 CHF exacerbation I50.9 Dilated cardiomyopathy I42.0
--- NOTE | 2021-12-10 10:02 | PC.NURSE ---
pt refusing to wear bedside telemetry. He states he will just take it off if I put it back on. He has his zoll lifevest on, it is beeping, red light flashing, stating to push button to activate. Dr Guillen at bedside while this is happening. pt states you just have to turn it off when this happens. I tried calling zoll. I waited on hold for 8 minutes without success to reach a person. I will call back again. pt verbalized understanding that I am unable to see his heart rhythm if he does not wear his tele and I will not know if his heart stops beating.
--- NOTE | 2021-12-10 10:24 | PM.DCS ---
Discharge Providers Date of Admission: 12/07/21 17:35 Date of Discharge: December 10, 2021 Attending Provider at Admission: Corinne Guillen MD Attending Provider at Discharge: Corinne Guillen MD Diagnoses at Discharge Discharge Diagnosis (1) Atrial flutter: Status: Acute (2) CHF exacerbation: Status: Acute (3) Dilated cardiomyopathy: Status: Acute Reason for Visit Reason for Visit: heart rate at 35 and SOB Hospital Course Hospital Course 81-year-old male who has history of systolic CHF, he was recently discharged from [facility] after TAVR at that point his EF was 38%, he presented to the hospital with chief complaint of heart rate in low 40s to 30s at home however in the ER he was diagnosed with A. fib RVR no signs of AV block or significant bradycardia arrhythmia noted throughout hospitalization, he actually required metoprolol to keep his heart rate below 100, he was anticoagulated with Lovenox, cardiology was consulted because of reduced ejection fraction EF 10%, records were obtained from [facility], LifeVest was arranged, cardiology recommended stress test which did not show new changes, patient required IV diuresis however we were not able to calculate urine output because patient never allowed us to put a Mccoy catheter for accurate output measurement. At the time of discharge I have discontinued his aspirin, I am discharging him on Eliquis, Plavix, metoprolol Reason I am discontinuing aspirin is because of the combination of Eliquis with Plavix He will get potassium supplementation for his Lasix 40 mg daily I have discontinued metformin because of low GFR, creatinine at the time of discharge is 1.7 He has bilateral lower extremity edema which is chronic I asked him to raise his feet along the use of diuretics, he can also use compression wraps At home he uses 4 L of oxygen which is his baseline requirement with oxygen, never worsened throughout hospitalization. Physical Exam Narrative: Awake and alert Doing well on 4 L of oxygen Bilateral breath sounds without active crackles Abdomen distended, lower extremity significant edema Pleasant during my evaluation Hemodynamically stable No active focal deficit Discharge Data Studies Completed and Pending Completed Studies During Hospitalization Category Date Time Status Sestamibi Stress Test Request Routine Exams 12/08/21 16:59 Draft XR chest 1V portable [id number] Stat Exams 12/05/21 14:35 Completed NM jose d perf SPECT r/s* [id number] Routine Nuc Med 12/09/21 16:59 Completed CV. echo complete* [id number] Routine Ultrasound 12/05/21 17:42 Completed Radiology Impressions Chest X-Ray 12/05/21 14:35 IMPRESSION: No acute findings. Laboratory Results WBC 9.2 10^3/uL (4.0-10.0) 12/09/21 04:28 RBC 4.59 10^6/uL (4.1-5.3) 12/09/21 04:28 Hgb 11.8 g/dL (11.7-16.6) 12/09/21 04:28 Hct 39.8 % (42.0-52.0) L 12/09/21 04:28 MCV 86.7 fl (80-94) 12/09/21 04:28 MCH 25.7 pg (28.0-34.0) L 12/09/21 04:28 MCHC 29.6 g/dL (30.0-36.0) L 12/09/21 04:28 RDW 14.4 % (12.1-15.1) 12/09/21 04:28 Plt Count 286 10^3/cmm (130-400) 12/09/21 04:28 MPV 12.2 fL (7.4-10.4) H 12/09/21 04:28 Neut % (Auto) 74.7 % 12/09/21 04:28 Lymph % (Auto) 9.6 % 12/09/21 04:28 [place] % (Auto) 11.5 % 12/09/21 04:28 Eos % (Auto) 2.7 % 12/09/21 04:28 Baso % (Auto) 0.8 % 12/09/21 04:28 Neut # (Auto) 6.90 10^3/uL (1.8-7.7) 12/09/21 04:28 Lymph # (Auto) 0.9 10^3/uL (0.8-4.8) 12/09/21 04:28 [place] # (Auto) 1.1 10^3/uL (0.2-0.9) H 12/09/21 04:28 Eos # (Auto) 0.3 10^3/uL (0.0-0.8) 12/09/21 04:28 Baso # (Auto) 0.1 10^3/uL (0.0-0.1) 12/09/21 04:28 Nucleated RBC % (auto) 0.2 % 12/09/21 04:28 Nucleated RBCs # 0.0 /100WBC 12/09/21 04:28 Sodium 144 mmol/L (136-145) 12/09/21 04:28 Potassium 3.6 mmol/L (3.5-5.1) 12/09/21 04:28 Chloride 97 mmol/L (98-107) L 12/09/21 04:28 Carbon Dioxide 34 mmol/L (22-29) H 12/09/21 04:28 Anion Gap 16.6 (5-19) 12/09/21 04:28 BUN 42 mg/dL (8-23) H 12/09/21 04:28 Creatinine 1.7 mg/dL (0.7-1.2) H 12/09/21 04:28 GFR Calculation Not Reportable 12/09/21 04:28 Glucose 132 mg/dL (65-115) H 12/09/21 04:28 POC Glucose 199 mg/dL (70-110) H 12/10/21 06:23 Estimat Average Glucose 212 12/08/21 02:22 Hemoglobin A1c 9.0 % (4.0-6.0) H 12/08/21 02:22 Calculated Osmolality 310 mOsm/kg (285-295) H 12/09/21 04:28 Calcium 9.0 mg/dL (8.5-10.5) 12/09/21 04:28 Magnesium 1.8 mg/dL (1.7-2.3) 12/06/21 02:37 Total Bilirubin 0.5 mg/dL (0.15-1.2) 12/05/21 14:50 AST 13 U/L (0-40) 12/05/21 14:50 ALT 12 U/L (0-41) 12/05/21 14:50 Alkaline Phosphatase 119 U/L (40-130) 12/05/21 14:50 Troponin T Baseline 87 ng/L (0-15) H 12/05/21 14:50 Troponin T 120 Minute 89.89 ng/L (0-15) H 12/05/21 16:43 Delta Troponin T 2.89 ABS# (0-10) 12/05/21 16:43 Troponin T Hi Sens 6Hr 91.37 ng/L (0-15) H 12/05/21 20:54 Troponin T Hi Sens 6Hr Delta 4.37 ng/L (0-12) 12/05/21 20:54 NT-Pro-B Natriuret Pep 3914 pg/mL (0-450) H 12/05/21 16:43 Total Protein 6.5 g/dL (6.6-8.7) L 12/05/21 14:50 Albumin 3.7 g/dL (3.5-5.2) 12/05/21 14:50 Globulin 2.8 g/dL (1.3-4.6) 12/05/21 14:50 Vitamin B12 343 pg/mL (232-1245) 12/05/21 16:43 TSH 3.01 uIU/mL (0.27-4.20) 12/05/21 16:43 Urine Color Yellow (Yellow) 12/05/21 22:45 Urine Appearance Clear (CLEAR) 12/05/21 22:45 Urine pH 5 (5-7) 12/05/21 22:45 Ur Specific [place] 1.015 (1.005-1.030) 12/05/21 22:45 Urine Protein Neg (Negative) 12/05/21 22:45 Urine Glucose (UA) Norm (Normal) 12/05/21 22:45 Urine Ketones Negative (Negative) 12/05/21 22:45 Urine Blood Neg (Negative) 12/05/21 22:45 Urine Nitrate Negative (Negative) 12/05/21 22:45 Urine Bilirubin Neg (Negative) 12/05/21 22:45 Urine Urobilinogen Norm mg/dL (Negative) 12/05/21 22:45 Ur Leukocyte Esterase Negative (Negative) 12/05/21 22:45 Vitals Last Vital Signs Temp 97.6 F 12/10/21 08:09 Pulse 62 12/10/21 08:09 Resp 18 12/10/21 08:09 BP 166/99 12/10/21 08:09 Pulse Ox 90 12/10/21 08:09 O2 Del Method 12/10/21 08:09 O2 Flow Rate 4 12/10/21 08:04 FiO2 4 12/07/21 08:00 Discharge Plan Discharge Patient Disposition: Home Condition: Stable Prescriptions: New metoprolol tartrate 50 mg Tablet 50 mg PO BID@0900,2100 Qty: 60 3RF Eliquis 2.5 mg tablet 2.5 mg PO BID Qty: 60 3RF Continued pantoprazole [Protonix] 40 mg tablet,delayed release (DR/EC) 40 mg PO QAM Levemir FlexTouch U-100 Insuln 100 unit/mL (3 mL) insulin pen 40 unit SUBCUT QAM clopidogrel [Plavix] 75 mg tablet 75 mg PO QAM docusate sodium [Colace] 100 mg capsule 100 mg PO QAM tramadol 50 mg tablet 50 - 100 mg PO Q8H PRN (Reason: Pain) albuterol sulfate 90 mcg/actuation HFA aerosol inhaler 2 puff inhalation Q6H PRN (Reason: shortness of breath or wheezing) 30 Days Qty: 18 4RF Trulicity 1.5 mg/0.5 mL pen injector 1.5 mg SUBCUT Q7D Rx Instructions: on sunday Anoro Ellipta 62.5-25 mcg/actuation blister with device 1 inh inhalation DAILY PRN (Reason: unknown) Changed furosemide [Lasix] 40 mg tablet 40 mg PO QAM Qty: 60 0RF potassium chloride 10 mEq tablet extended release 10 meq PO QAM Qty: 30 0RF Held lisinopril 5 mg tablet 5 mg PO QAM Hold Instructions: Resume on 12/17/21. Discontinued metformin 1,000 mg tablet 1,000 mg PO BID Aspir-81 81 mg Tablet,Delayed Release (Dr/Ec) 81 mg PO QAM potassium gluconate 550 mg (90 mg) Tablet 550 mg PO QAM Discharge Orders: Discharge Order (Routine); Ordered 12/10/21 Ordered By: Corinne Guillen Discharge Diet: Cardiac Discharge Activity: Increase activity as tolerated Patient Instructions: Opioid Safety Discharge Attestations Time Spent in Discharge Care*: less than 30 min Quality Metrics Clinical Quality Measures [ No reported AMI, CVA or VTE this stay] Coding Level of Care Code Acute Chg FW DC note Diagnoses Atrial flutter I48.92 CHF exacerbation I50.9 Dilated cardiomyopathy I42.0
[2021-12-10 11:04] LABS: Glucose Point of Care 315 mg/dL (70-110)
--- NOTE | 2021-12-10 11:47 | PC.NURSE ---
discharge instructions reviewed with pt and his daughters. verbalized understanding of follow up, medications and life vest. [employer]oll life vest on patient. Left message with them to inform of patients discharge from hospital with contact information. pt left via wc to private vehicle.
--- NOTE | 2021-12-10 12:26 | PC.SOCIAL ---
[facility] Updated @ 9932 pg 2 of [facility] updated and reviewed w/ patient. Copy provided. Copy dated, initialed and placed in chart.
== END 2021-12-10 11:49 | disposition home or self-care (01) | DRG 291 ==
LOC: ER 17:04 → MEDSURG 17:08
PROVIDERS: Admitting Provider Internal Medicine; Emergency Provider Family Medicine; Visit Provider Internal Medicine
DX: I13.0 Hypertensive heart and chronic kidney disease with heart failure and stage 1 through stage 4 chronic kidney disease, or unspecified chronic kidney disease (principal); I50.23 Acute on chronic systolic (congestive) heart failure; N18.30 Chronic kidney disease, stage 3 unspecified; E11.22 Type 2 diabetes mellitus with diabetic chronic kidney disease; I48.91 Unspecified atrial fibrillation; Z95.3 Presence of xenogenic heart valve; F32.A Depression, unspecified; E78.2 Mixed hyperlipidemia; M19.90 Unspecified osteoarthritis, unspecified site; Z86.73 Personal history of transient ischemic attack (TIA), and cerebral infarction without residual deficits; Z87.891 Personal history of nicotine dependence; J43.9 Emphysema, unspecified; I08.3 Combined rheumatic disorders of mitral, aortic and tricuspid valves; Z99.81 Dependence on supplemental oxygen; Z79.85 Long-term (current) use of injectable non-insulin antidiabetic drugs; Z79.51 Long term (current) use of inhaled steroids; Z79.891 Long term (current) use of opiate analgesic; Z79.02 Long term (current) use of antithrombotics/antiplatelets; I42.0 Dilated cardiomyopathy; D50.9 Iron deficiency anemia, unspecified; D63.1 Anemia in chronic kidney disease
CPT/HCPCS: 36415; 36416; 71045; 78452; 80048; 80053; 81003; 82607; 82962; 83036; 83735; 83880; 84443; 84484; 85025; 93005; 93017; 93306; 94640; 96372; 99285; A9500; G0378; J1650; J1815; J1940; J2785

== ENCOUNTER → 2021-12-22 14:44 | Outpatient (BNVA) | payer MEDICARE, MEDICAID, SELFPAY | PROVIDERS: PCP Registered Nurse; Visit Provider Internal Medicine Cardiovascular Disease | DX: I11.0 Hypertensive heart disease with heart failure (principal); I50.22 Chronic systolic (congestive) heart failure; I42.0 Dilated cardiomyopathy; I48.92 Unspecified atrial flutter; E78.5 Hyperlipidemia, unspecified; I35.0 Nonrheumatic aortic (valve) stenosis; J43.9 Emphysema, unspecified; Z87.891 Personal history of nicotine dependence; Z79.01 Long term (current) use of anticoagulants | CPT/HCPCS: 93005; 99214; 99215 ==

== ENCOUNTER → 2022-01-05 13:56 | Outpatient (BNVA) | payer OTHER, SELFPAY | PROVIDERS: PCP Registered Nurse; Visit Provider Nurse Practitioner Family | DX: I42.0 Dilated cardiomyopathy (principal); E78.2 Mixed hyperlipidemia; Z87.891 Personal history of nicotine dependence | CPT/HCPCS: 36415; 80048; 83735; 83880; 99213; 99214 ==

== ENCOUNTER → 2022-03-30 15:50 | Outpatient (BNVA) | payer MEDICARE, MEDICAID, SELFPAY | PROVIDERS: PCP Registered Nurse; Visit Provider Internal Medicine Cardiovascular Disease | DX: I42.0 Dilated cardiomyopathy (principal); I50.9 Heart failure, unspecified; I48.92 Unspecified atrial flutter; R00.2 Palpitations; R00.1 Bradycardia, unspecified; I10 Essential (primary) hypertension; Z87.891 Personal history of nicotine dependence | CPT/HCPCS: Q3014; 36415; 80053; 83735; 83880; 93246; 99214 ==

== ENCOUNTER → 2022-07-03 14:20 | Outpatient (BNVA) | payer OTHER, SELFPAY | PROVIDERS: PCP Registered Nurse; Visit Provider Nurse Practitioner Family | DX: I42.0 Dilated cardiomyopathy (principal); I11.0 Hypertensive heart disease with heart failure; I50.22 Chronic systolic (congestive) heart failure; I48.92 Unspecified atrial flutter; Z87.891 Personal history of nicotine dependence; Z79.01 Long term (current) use of anticoagulants | CPT/HCPCS: 99214 ==

== ENCOUNTER 2023-03-30 09:05 | Emergency (ER) | payer MEDICARE, MEDICAID, SELFPAY ==
[2023-03-30 09:06] VITALS: BP 142/81; PULSE 92; RESP 16; TEMP 35.8; O2SAT 92; BMI 31.1
--- NOTE | 2023-03-30 09:13 | XR_ITS ---
WS: [id number] Portable AP upright chest, 03/30/2023 Clinical Data: dyspnea/cough Comparison: Portable chest, 12/05/2021 Findings: No nodules, masses or effusions are seen. The heart is normal. The pulmonary vascularity is not increased. No pneumonia or pneumothorax is seen. There is an artificial cardiac valve. There is a dextroscoliosis of the thoracic spine. The aortic arch and descending thoracic aorta show mild tort uosity. Impression: Atherosclerosis.
--- NOTE | 2023-03-30 09:13 | CT_ITS ---
WS: [id number] CT HEAD NONCONTRAST HISTORY: AMS TECHNIQUE: Contiguous axial imaging performed through the brain in 2.5 mm imaging. Bone and soft tiss ue windows. Sagittal and coronal reformats reviewed. All CT scans at [facility] use at least one of these dose optimization techniques: automated exposure control; mA and/or kV adjustment per pa tient size (includes targeted exams where dose is matched to clinical indication); or iterative recon struction. DLP: 1090.34 mGy.cm COMPARISON: 08/05/2017 No acute intracranial hemorrhage, midline shift or mass effect. Moderate progression of atrophy and small vessel ischemic disease since 2018. Interval progression of the large infarct in the RIGHT cerebellum. Otherwise bilateral moderate atrophy. Small lacunar infar cts in the basal ganglia. There is extensive small vessel ischemic disease which is greater on the LE FT. There is a prior infarct involving the LEFT occipital lobe. There is no new area of sulcal efface ment. Ventricles: Normal size with no hydrocephalus. No inferior displacement of the cerebellar tonsils. Paranasal sinuses: As visualized are clear. Mastoid air cells: Well pneumatized. Calvarium and scalp: Skull is intact with no soft tissue edema or swelling. There is very dense heavy calcification in the distal vertebral arteries and intracranial carotid art eries. IMPRESSION: 1. No acute intracranial hemorrhage or edema. 2. Moderate progression of atrophy and small vessel ischemic disease since 2018, greater involvement of small vessel ischemic disease on the LEFT. 3. 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
--- NOTE | 2023-03-30 09:15 | W.ED.GENADLT ---
HPI - General Adult General: Chief complaint: Extremity Problem,Nontraumatic Stated complaint: shoulder and arm pain Time Seen by Provider: 03/30/23 09:07 Source: patient Mode of arrival: EMS History of Present Illness: 83-year-old male presents emergency room with bilateral shoulder and arm pain patient episode of chest pain last night needs been sick not feeling well. States his arms and shoulder severity is a slight cough. Is a known history of previous stroke. He is chronically on oxygen at 4 L. He denies any chest or abdominal pain now no fever nonproductive cough. Onset (ago): day(s) Relieving factors: none Exacerbating factors: none Associated symptoms: Reports confusion and cough; Deny chest pain, diaphoresis, decreased appetite, dyspnea, fevers/chills, headache(s), malaise, nausea, rash, palpitations, seizures, short of breath, syncope, vomiting or weakness Review of Systems Const: Denies: fever(s), chills, malaise or diaphoresis Card: Denies: chest pain, palpitations or syncope Resp: Denies: dyspnea GI: Denies: abdominal pain, nausea or vomiting : Denies: dysuria, urinary frequency or urinary urgency Musc: Denies: neck pain or back pain Skin/Breast: Denies: rash Neuro: Reports: confusion; Denies: headache(s) PFSH ED PFSH: Medical History Dilated cardiomyopathy Heart failure with reduced ejection fraction Atrial flutter CHF exacerbation New onset a-fib Nocturnal hypoxia Severe aortic valve stenosis Emphysema of lung Type 2 diabetes mellitus Hypertensive heart disease with acute diastolic congestive heart failure HTN (hypertension) Chronic systolic (congestive) heart failure Depression Mixed hyperlipidemia Primary osteoarthritis involving multiple joints Stroke Encounter for nasogastric (NG) tube placement Nodular and follicular lymphomas Surgical History S/P skin neoplasm resection S/P TAVR (transcatheter aortic valve replacement) Hx of tonsillectomy Family History Mother Diabetes Father Diabetes Congestive heart failure Brother Diabetes Sister Diabetes Grandmother Diabetes Family/Other Diabetes Social History Smoking and tobacco/nicotine status: former use of tobacco/nicotine Quit status (tobacco/nicotine): has quit using Year quit tobacco: 1969 - 1PPD x 10 Years Second hand smoke exposure: No Alcohol intake: never Substance/Drug Use: never Lives independently: Yes Household members: family Marital status: Current occupational status: retired Do you think of yourself as: Straight/Heterosexual Current gender identity: Male Physical Exam Const: GENERAL APPEARANCE: cooperative and comfortable ORIENTATION/CONSCIOUSNESS: Yes awake HENMT: COMMON NORMALS: normocephalic, atraumatic and hearing grossly normal bilaterally HEAD & SCALP: normocephalic and atraumatic Resp: COMMON NORMALS: normal respiratory effort, No retractions, No use of accessory muscles and clear to auscultation bilaterally AUSCULTATION: clear to auscultation bilaterally Cardio: COMMON NORMALS: regular rate, regular rhythm and No murmurs present (Cardio) RATE: regular rate RHYTHM: regular rhythm GI: COMMON NORMALS: Soft to palpation and No hepatosplenomegaly present AUSCULTATION: Yes normoactive bowel sounds PALPATION: Yes Soft to palpation, No Tenderness to palpation present (GI), No Guarding due to palpation present (GI) and Yes No hepatosplenomegaly present Extremity: COMMON NORMALS: normal to inspection, capillary refill normal, no clubbing, cyanosis or edema, no calf tenderness and no pedal edema Skin: COMMON NORMALS: no rashes or lesions noted GENERAL SKIN EXAM: no rashes or lesions noted Course Vital Signs: Vital signs: Vital Signs Temperature 96.4 F L 03/30/23 13:10 Pulse Rate 92 03/30/23 13:10 Respiratory Rate 16 03/30/23 13:10 Blood Pressure 142/81 03/30/23 13:10 Pulse Oximetry 93 03/30/23 13:10 Oxygen Delivery Me thod Nasal Cannula 03/30/23 09:36 Oxygen Flow Rate 3 03/30/23 09:36 MDM - General Adult Medical Decision Making Patient has a UTI as initial troponin is significantly elevated. We had considered admitting the patient and family arrival Patient is actually been put on hospice for congestive heart failure. Discussed with the family member at the bedside they are comfortable taking him home and prefer to do so. Did warn initial troponin is elevated. After a left second troponin came back and showed significant increase. We did contact him regarding this but there focusing more on comfort care at this point. We did give him Rocephin in the emergency room will discharge home with ciprofloxacin 1 p.o. twice daily. Continue hospice care Medical Records I reviewed the patient's medical records. Lab Data I reviewed the patient's lab results. 03/30/23 09:52 03/30/23 09:52 Laboratory Results WBC 10.46 10^3/uL (3.29-11.43) 03/30/23 09:52 RBC 5.67 10^6/uL (3.85-5.65) H 03/30/23 09:52 Hgb 16.00 g/dL (11.27-16.99) 03/30/23 09:52 Hct 48.5 % (37-53) 03/30/23 09:52 MCV 85.5 fl (82-101) 03/30/23 09:52 MCH 28.2 pg (27-33) 03/30/23 09:52 MCHC 33.0 g/dL (30-55) 03/30/23 09:52 RDW 13.2 % (12.1-15.1) 03/30/23 09:52 Plt Count 246 10^3/cmm (157-399) 03/30/23 09:52 MPV 11.8 fL (7.4-10.4) H 03/30/23 09:52 Neut % (Auto) 86.8 % 03/30/23 09:52 Lymph % (Auto) 7.0 % 03/30/23 09:52 [place] % (Auto) 4.6 % 03/30/23 09:52 Eos % (Auto) 0.2 % 03/30/23 09:52 Baso % (Auto) 0.5 % 03/30/23 09:52 Neut # (Auto) 9.09 10^3/uL (1.8-7.7) H 03/30/23 09:52 Lymph # (Auto) 0.7 10^3/uL (0.8-4.8) L 03/30/23 09:52 [place] # (Auto) 0.5 10^3/uL (0.2-0.9) 03/30/23 09:52 Eos # (Auto) 0.0 10^3/uL (0.0-0.8) 03/30/23 09:52 Baso # (Auto) 0.1 10^3/uL (0.0-0.1) 03/30/23 09:52 Nucleated RBC % (auto) 0 % 03/30/23 09:52 Nucleated RBCs # 0.0 /100WBC 03/30/23 09:52 Specimen Type Arterial 03/30/23 09:18 Sample Site Radial, right 03/30/23 09:18 ABG pH 7.45 (7.35-7.45) 03/30/23 09:18 ABG pCO2 36.0 mmHg (35-45) 03/30/23 09:18 ABG pO2 66.9 mmHg (80.0-100.0) L 03/30/23 09:18 ABG PO2/FiO2 Ratio 0 03/30/23 09:18 ABG HCO3 24.7 mmol/L (22-26) 03/30/23 09:18 ABG O2 Saturation 94.1 03/30/23 09:18 ABG Base Excess 1.1 mmol/L (-2.0-2.0) 03/30/23 09:18 Rk Test Pos 03/30/23 09:18 A-a O2 Gradient 15.1 mmHg (5-10) H 03/30/23 09:18 Hematocrit 51.0 % (42-52) 03/30/23 09:18 Hgb O2 Saturation 93.1 % (95-100) L 03/30/23 09:18 Carboxyhemoglobin 0.9 %THgb (0.4-20.1) 03/30/23 09:18 Methemoglobin 0.1 % (0.4-1.5) L 03/30/23 09:18 Total Hemoglobin 16.6 g/dL (14-18) 03/30/23 09:18 Sodium 140.0 mmol/L (131-143) 03/30/23 09:18 Potassium 3.3 mmol/L (3.5-5.0) L 03/30/23 09:18 Glucose 606.0 mg/dL (70-115) H 03/30/23 09:18 Ionized Calcium 1.2 mmol/L (1.1-1.4) 03/30/23 09:18 O2 Delivery Device Nc 03/30/23 09:18 O2 Liters/Min 3.0 % 03/30/23 09:18 FiO2 32.0 % 03/30/23 09:18 Peoplesoft Hcm Developer ID glc 03/30/23 09:18 Sodium 135 mmol/L (136-145) L 03/30/23 09:52 Potassium 3.7 mmol/L (3.5-5.1) 03/30/23 09:52 Chloride 86 mmol/L (98-107) L 03/30/23 09:52 Carbon Dioxide 26 mmol/L (22-29) 03/30/23 09:52 Anion Gap 26.7 (5-19) H 03/30/23 09:52 BUN 51 mg/dL (8-23) H 03/30/23 09:52 Creatinine 1.5 mg/dL (0.7-1.2) H 03/30/23 09:52 GFR Calculation Not Reportable 03/30/23 09:52 Glucose 612 mg/dL (65-115) H* 03/30/23 09:52 POC Glucose 586 mg/dL (70-110) H* 03/30/23 12:51 Calculated Osmolality 322 mOsm/kg (285-295) H 03/30/23 09:52 Lactic Acid 3.3 mmol/L (0.5-2.2) H 03/30/23 09:52 Lactic Acid (Sepsis) 3.5 mmol/L (0.5-2.2) H 03/30/23 12:32 Calcium 10.7 mg/dL (8.5-10.5) H 03/30/23 09:52 Total Bilirubin 0.9 mg/dL (0.15-1.2) 03/30/23 09:52 AST 39 U/L (0-40) 03/30/23 09:52 ALT 16 U/L (0-41) 03/30/23 09:52 Alkaline Phosphatase 111 U/L (40-130) 03/30/23 09:52 Ammonia 19 umol/L (16-60) 03/30/23 09:52 Troponin T Baseline 413 ng/L (0-15) H* 03/30/23 09:52 Troponin T 120 Minute 1202 ng/L (0-15) H 03/30/23 12:32 Delta Troponin T 789 ABS# (0-10) H* 03/30/23 12:32 Total Protein 7.7 g/dL (6.6-8.7) 03/30/23 09:52 Albumin 4.5 g/dL (3.5-5.2) 03/30/23 09:52 Globulin 3.2 g/dL (1.3-4.6) 03/30/23 09:52 Lipase 22 U/L (13-60) 03/30/23 09:52 Urine Color Yellow (Yellow) 03/30/23 09:30 Urine Appearance Hazy (CLEAR) A 03/30/23 09:30 Urine pH 5 (5-7) 03/30/23 09:30 Ur Specific [place] 1.005 (1.005-1.030) 03/30/23 09:30 Urine Protein Trace (Negative) 03/30/23 09:30 Urine Glucose (UA) 4+ (Normal) H 03/30/23 09:30 Urine Ketones 2+ (Negative) H 03/30/23 09:30 Urine Blood 2+ (Negative) H 03/30/23 09:30 Urine Nitrate Negative (Negative) 03/30/23 09:30 Urine Bilirubin Neg (Negative) 03/30/23 09:30 Urine Urobilinogen Norm mg/dL (Negative) 03/30/23 09:30 Ur Leukocyte Esterase 2+ (Negative) H 03/30/23 09:30 Urine RBC 0-4 /hpf (0-2) H 03/30/23 09:30 Urine WBC >100 /hpf (0-5) H 03/30/23 09:30 Ur Squamous Epith Cells 0-4 /hpf (0-5) H 03/30/23 09:30 Amorphous Sediment Not Reportable 03/30/23 09:30 Urine Bacteria 4+ /hpf (NONE) H 03/30/23 09:30 Serum Ketones Negative (Negative) 03/30/23 12:32 All radiology interpretation(s) finalized by discharge Discharge Plan Discharge Patient Disposition: Home Clinical Impression: Cystitis, Dilated cardiomyopathy, Hyperglycemia Condition: Stable Prescriptions: New Cipro 250 mg tablet 250 mg PO BID 7 Days Qty: 14 0RF No Action pantoprazole [Protonix] 40 mg tablet,delayed release (DR/EC) 40 mg PO QAM docusate sodium [Colace] 100 mg capsule 100 mg PO QAM tramadol 50 mg tablet 50 - 100 mg PO Q8H PRN (Reason: Pain) Levemir FlexTouch U100 Insulin 100 unit/mL (3 mL) insulin pen 50 unit SUBCUT QAM hydrocodone-acetaminophen 7.5-325 mg tablet 1 tab PO Q8H PRN gabapentin 100 mg capsule 200 mg PO .HS metoprolol tartrate 50 mg tablet 50 mg PO DAILY polyethylene glycol 3350 [Miralax] 17 gram/dose powder 4 g PO DAILY PRN Lasix 40 mg tablet 40 mg PO BID Qty: 180 3RF metolazone 2.5 mg tablet 2.5 mg PO DAILY Qty: 90 3RF potassium chloride 20 mEq tablet extended release 20 meq PO BID Qty: 180 1RF Eliquis 2.5 mg tablet 2.5 mg PO BID Qty: 60 3RF Discharge Orders: Discharge ED (Routine); Ordered 03/30/23 Ordered By: Demond Pichardo Referrals: Carmen Ann FNP [Primary Care Provider] - Discharge Diet: Usual diet Discharge Activity: Increase activity as tolerated Patient Instructions: Opioid Safety, Pain Management Coding Level of Care Code ED Litigation Specialist for Anthony Pettit NIH stroke score NIHSS Level Of Consciousness - 1a: 0 Level Of Consciousness Questions - 1b: Both Correct Level Of Consciousness Commands - 1c: Both Correct Best Gaze - 2: Normal Visual Bernard - 3: No Visual Loss Facial Palsy - 4: Normal Motor Arm Right - 5: No Drift Motor Arm Left - 5: No Drift Motor Leg Right - 6: No Drift Motor Leg Left - 6: No Drift Limb Ataxia - 7: Absent Sensory - 8: Normal Best Language - 9: No Aphasia Dysarthia - 10: Normal Extinction And Inattention - 11: 0 Score Total Score: 0
--- NOTE | 2023-03-30 09:20 | ECG_ITS ---
[facility] Test Date: 2023-03-30 Pat Name: Vijay Barajas Department: Room: Gender: Male Benefits Officer: : 1940 Requested By: Demond Miranda Order Number: [id number] Balbir MD: Amandeep Bledsoe M.D. Measurements Intervals [place] Rate: 90 P: 237 KS: 210 QRS: -58 QRSD: 153 T: 85 QT: 415 QTc: 510 Interpretive Statements ECTOPIC ATRIAL RHYTHM WITH FIRST DEGREE AV BLOCK LEFT AXIS DEVIATION [QRS AXIS < -30] INTRAVENTRICULAR CONDUCTION DELAY [130+ ms QRS DURATION] Compared to ECG 12/05/2021 22:13:33 Ectopic atrial rhythm now present First degree AV block now present Left-axis deviation now present Intraventricular conduction delay now present Atrial flutter no longer present T-wave abnormality no longer present Possible ischemia no longer present Electronically Signed On 03-31-2023 23:15:59 CNA CAREGIVER by Amandeep Bledsoe M.D. [id number]
[2023-03-30 09:28] LABS: ABG PH Result 7.45 (7.35-7.45); Alveolar-Arterial Oxygen Gradi 15.1 mmHg (5-10); Base Excess ABG 1.1 mmol/L (-2.0-2.0); Blood Gas Allen Test Pos; Blood Gas Operator Identificat glc; Blood Gas Sample Site Radial, right; Blood Gas Sample Type Arterial; Carboxyhemoglobin 0.9 %THgb (0.4-20.1); HCO3 ABG 24.7 mmol/L (22-26); HGB O2 Sat 93.1 % (95-100); Ionized Calcium Level - ABG 1.2 mmol/L (1.1-1.4); Methemoglobin 0.1 % (0.4-1.5); Oxygen Device NC; Oxygen Saturation ABG 94.1; PO2 ABG 66.9 mmHg (80.0-100.0); PO2 FiO2 Ratio Arterial Blood 0; Potassium Level - ABG 3.3 mmol/L (3.5-5.0); Total Hemoglobin 16.6 g/dL (14-18)
[2023-03-30 09:36] VITALS: BP 142/81; PULSE 92; RESP 16; O2SAT 93
[2023-03-30 10:37] LABS: Add Urine Culture? Yes; Add Urine Microscopic? YES; Bacteria Urine 4+ /hpf; Bilirubin Urine Neg (Negative); Blood Urine 2+ (Negative); Glucose Urine UA 4+ (Normal); Ketones Urine 2+ (Negative); Leukocyte Esterase Urine 2+ (Negative); Nitrate Urine Negative (Negative); Protein Urine Trace (Negative); RBC Urine 0-4 /hpf (0-2); Specific Gravity, Urine 1.005 (1.005-1.030); Squamous Epithelial Cell Urine 0-4 /hpf (0-5); Urine Appearance Hazy (CLEAR); Urine Color Yellow (Yellow); Urobilinogen Urine Norm (Negative); WBC Urine >100 /hpf (0-5); pH Urine 5 (5-7)
[2023-03-30 10:48] LABS: Basophils # 0.1 10^3/uL (0.0-0.1); Basophils % 0.5 %; Eosinophils % 0.2 %; Hematocrit 48.5 % (37-53); Lymphocytes # 0.7 10^3/uL (0.8-4.8); Mean Corpuscular Hemoglobin 28.2 pg (27-33); Mean Corpuscular Volume 85.5 fl (82-101); Mean Platelet Volume 11.8 fL (7.4-10.4); Monocytes # 0.5 10^3/uL (0.2-0.9); Monocytes % 4.6 %; Neutrophils # 9.09 10^3/uL (1.8-7.7); Neutrophils % 86.8 %; Nucleated Red Blood Cells % 0 %; Platelet Count 246 10^3/cmm (157-399); Red Blood Count 5.67 10^6/uL (3.85-5.65); Red Cell Distribution Width 13.2 % (12.1-15.1); White Blood Count 10.46 10^3/uL (3.29-11.43)
--- NOTE | 2023-03-30 10:57 | CT_ITS ---
WS: [id number] CT ABDOMEN AND PELVIS NONCONTRAST HISTORY: flank pain/cystitis TECHNIQUE: Imaging performed through the abdomen and pelvis. Coronal and sagittal reformats are submi tted. All CT scans at [facility] use at least one of these dose optimization techniques: auto mated exposure control; mA and/or kV adjustment per patient size (includes targeted exams where dose is matched to clinical indication); or iterative reconstruction. DLP: 1066.16 mGy.cm COMPARISON: None available. Lower thorax: Small hiatal hernia. Otherwise negative. Liver: Normal size liver. No mass or bile duct dilatation. Gallbladder: Normal gallbladder. No pericholecystic fluid or cholelithiasis. No gallbladder wall thic kening. Pancreas: Mild atrophy. Spleen: Normal. Adrenal glands: Bilateral adrenal nodules are seen low-attenuation in probably represent adenomas. Th robe are too small to completely characterize. Right kidney: Mild perinephric stranding. Mild atrophy. Cortical cyst lower pole. No ureteral obstruc tion or calcification. Left kidney: Mild perinephric stranding and atrophy. No obstruction. No ureteral calcification. Aorta: Mild atherosclerosis abdominal aorta with no aneurysm. No free fluid, intraperitoneal air or significant lymphadenopathy. GI tract: Moderately distended stomach with fluid. No small bowel obstruction. No colitis. Normal lovely endix. Abdominal wall: Ventral abdominal wall hernia. Supraumbilical LEFT abdominal wall hernia contains fat only. Pelvis: Well-distended urinary bladder. Prostate gland is enlarged encroaching into the urinary bladd er. Prostate measures 5.0 x 6.4 x 7.7 cm. Osseous structures: Moderate lumbar curvature to the LEFT. IMPRESSION: 1. No renal obstruction or hydronephrosis. 2. Prostate gland enlargement. 3. No obstructing renal calculi. 4. No ascites.
[2023-03-30 11:05] LABS: Lactic Sepsis W/Reflex 3.3 mmol/L (0.5-2.2)
[2023-03-30 11:06] LABS: Troponin(5th) Baseline 413 ng/L (0-15)
[2023-03-30 11:08] LABS: Ammonia 19 umol/L (16-60)
[2023-03-30 11:09] LABS: Alanine Aminotransferase 16 U/L (0-41); Albumin Level 4.5 g/dL (3.5-5.2); Alkaline Phosphatase 111 U/L (40-130); Anion Gap 26.7 (5-19); Aspartate Amino Transferase 39 U/L (0-40); Blood Urea Nitrogen 51 mg/dL (8-23); Calcium 10.7 mg/dL (8.5-10.5); Carbon Dioxide 26 mmol/L (22-29); Chloride 86 mmol/L (98-107); Globulin 3.2 g/dL (1.3-4.6); Lipase 22 U/L (13-60); Osmolality Calculated 322 mOsm/kg (285-295); Potassium 3.7 mmol/L (3.5-5.1); Sodium 135 mmol/L (136-145); Total Bilirubin 0.9 mg/dL (0.15-1.2); Total Protein 7.7 g/dL (6.6-8.7)
[2023-03-30 11:11] LABS: Glucose 612 mg/dL (65-115)
[2023-03-30] MEDS: cefTRIAXone 1,000 MG in sodium chloride 0.9% (plus) 50 ML 100 MG IV (11:29)
[2023-03-30] MEDS: insulin regular-human 100 units/1 mL 10 UNIT IVP (11:29)
[2023-03-30] MEDS: insulin regular-human 100 units/1 mL 15 UNIT IVP ×2 (12:14→13:03)
[2023-03-30 12:21] LABS: Glucose Point of Care > 600 mg/dL (70-110)
[2023-03-30 12:30] LABS: Reflex Lactate Order REFLEX LACTIC ORDERD
[2023-03-30 12:56] LABS: Glucose Point of Care 586 mg/dL (70-110)
[2023-03-30 13:06] LABS: Ketone (Acetest) Serum Negative (Negative)
[2023-03-30 13:10] VITALS: BP 142/81; PULSE 92; RESP 16; TEMP 35.8; O2SAT 93
[2023-03-30 13:16] LABS: Lactic Acid level (Lactate) 3.5 mmol/L (0.5-2.2)
[2023-03-30 13:28] LABS: Troponin 5 2HR 1202 ng/L (0-15); Troponin 5 2HR Delta 789 ABS# (0-10)
== END 2023-03-30 13:12 | disposition home or self-care (01) ==
PROVIDERS: Emergency Provider Family Medicine; PCP Registered Nurse
DX: N30.90 Cystitis, unspecified without hematuria (principal); I42.0 Dilated cardiomyopathy; E11.65 Type 2 diabetes mellitus with hyperglycemia; Z79.4 Long term (current) use of insulin; I11.0 Hypertensive heart disease with heart failure; I50.9 Heart failure, unspecified; E78.2 Mixed hyperlipidemia; Z86.73 Personal history of transient ischemic attack (TIA), and cerebral infarction without residual deficits; Z87.891 Personal history of nicotine dependence
CPT/HCPCS: 36415; 36416; 36600; 70450; 71045; 74176; 80051; 80053; 81001; 82009; 82140; 82330; 82805; 82962; 83605; 83690; 84484; 85025; 87040; 87077; 87086; 87186; 93005; 96365; 96375; 96376; 99285; J0696; J1815